=== PATIENT | female | born 1985 | race Caucasian/White ===

== ENCOUNTER 2024-01-14 14:57 | Inpatient (IN) | payer MEDICARE, MEDICAID, SELFPAY ==
--- NOTE | ~2024-01-14 | XR_ITS ---
EXAMINATION: XR ABDOMEN KUB CLINICAL INDICATION: Pre-MRI COMPARISON: None available. TECHNIQUE: AP view of the abdomen. FINDINGS: The bowel gas pattern is normal with no evidence of ileus or obstruction. No unusual soft tissue calcifications are noted. The bones are unremarkable. No radiopaque foreign body seen. XR/XR KUB IMPRESSION: Unremarkable examination.
--- NOTE | ~2024-01-14 | MR_ITS ---
EXAMINATION: MR BRAIN WITHOUT CONTRAST CLINICAL INFORMATION: Seizure. COMPARISON: CT scan of the head 01/14/2024. TECHNIQUE: MRI of the brain was obtained using routine sequences without contrast. FINDINGS: No diffusion abnormalities are identified to suggest an acute or subacute infarct. No mass effect or midline shift is seen. The study redemonstrates prominence of the lateral ventricles bilaterally, particularly the temporal horns, occipital horns and trigones. There are gliotic and encephalomalacic changes in the subcortical and periventricular white matter in the bilateral temporal lobes and right greater than left parieto-occipital regions. The hippocampi appear symmetric in size and signal. No extra-axial fluid collections are seen. The brainstem appears normal. No pathologic magnetic susceptibility artifact is identified on the gradient refocused acquisition. The cerebellar tonsils have normal contour and position, and the craniocervical junction appears normal. Marrow signal and midline structures are normal. The major intracranial flow-voids at the level of the rincon of [place] are preserved. The dural venous sinus flow-voids are maintained. The mastoid air cells are well-aerated. There is minimal mucoperiosteal thickening in the bilateral maxillary and ethmoid sinuses. MR/MR head/brain wo con IMPRESSION: 1. There are no acute bleeds or infarcts. No masses are demonstrated. 2. There are gliotic and encephalomalacic changes in the bilateral temporal lobes and right greater than left parieto-occipital regions. 3. The study redemonstrates prominence of the lateral ventricles bilaterally.
--- NOTE | ~2024-01-14 | XR_ITS ---
EXAMINATION: XR CHEST CLINICAL INFORMATION: Pre-MRI COMPARISON: None available. TECHNIQUE: Frontal view of the chest was obtained. FINDINGS: No significant abnormality is noted involving the heart, lungs, mediastinum, bony thorax or soft tissues. No medical lab director or foreign body seen. XR/XR chest 1V IMPRESSION: Unremarkable examination.
--- NOTE | ~2024-01-14 | CT_ITS ---
EXAMINATION: CT HEAD WITHOUT CONTRAST CLINICAL INFORMATION: Recurrent seizures. COMPARISON: CT head 10/31/2018. TECHNIQUE: Contiguous axial imaging was performed from the skull base to vertex without intravenous administration of contrast. This CT examination was performed using dose optimization techniques as appropriate, variously including the following: *Automated exposure control *Adjustment of mA and/or kV according to patient size (this includes techniques or standardized protocols for targeted exams where dose is matched to indication/reason for exam; i.e. extremities or head) *Use of iterative reconstruction technique DLP: 1000 mGy-cm FINDINGS: Equivocal new focal hypodensity in the inferior right frontal lobe (2:24 and 6:192). Again seen is encephalomalacia involving the bilateral temporal lobes and right greater than left parietal lobes with ex vacuo dilatation of the temporal horns. There is no evidence of acute intracranial hemorrhage. Generalized cerebral volume loss again seen. No evidence for obstructive hydrocephalus. No abnormal mass effect or midline shift. No extra-axial fluid collections. No acute soft tissue or osseous abnormalities. The mastoid air cells and paranasal sinuses are clear. CT/CT head/brain wo IV con IMPRESSION: 1. Equivocal new focal hypodensity in the inferior right frontal lobe, although this might be an artifact related with volume averaging and motion. Consider further evaluation with an MRI of the brain. 2. Redemonstration of encephalomalacia in the bilateral temporal and parietal lobes.
[2024-01-14 15:25] VITALS: BP 160/72; PULSE 97; O2SAT 98
[2024-01-14 15:35] VITALS: BP 136/78; PULSE 94; RESP 19; TEMP 36.6; O2SAT 98; BMI 31.8
[2024-01-14 15:43] LABS: Glucose, Whole Blood 364 mg/dL (60-115)
--- NOTE | 2024-01-14 16:02 | ECG_ITS ---
Test Reason : SEIZURE Blood Pressure : / mmHG Vent. Rate : 108 BPM Atrial Rate : 108 BPM P-R Int : 148 ms QRS Dur : 072 ms QT Int : 318 ms P-R-T Axes : 058 051 030 degrees QTc Int : 426 ms Sinus tachycardia Otherwise normal ECG No previous ECGs available Referred By: Parisa Hurst Electronically Signed By:LENNY BLANCO
--- NOTE | 2024-01-14 16:02 | ED_ITS ---
HPI - General Adult General Chief complaint: Seizure Stated complaint: WIT SZ 2 HOURS AGO WIT BY STAFF,NO FALL PER EMS Time Seen by Provider: 01/14/24 15:50 Source: EMS Mode of arrival: EMS Limitations: language barrier and altered mental status History of Present Illness HPI narrative: 38 yo female with known history of seizures who presents to the ED for evaluation after a witnessed seizure activity at the nursing facility where she currently resides. Per facility report patient has not been taking her seizure medications Vimpad for several days due to pharmacy issue. Today patient had an seizure episode that lasted for about a minute; no falls or head injury as staff at the facility was able to assist. After the seizure patient was slow to respond and became very sleepy. She was transported to the ED for evaluation. At the time of this evaluation patient wakes up to voice; says hello when addressed; does not participate in conversation. Per facility at baseline patient is alert and oriented to self. Related Data Allergies Allergy/AdvReac Type Severity Reaction Status Date / Time cephalexin [From KEFLEX] Allergy Unknown UNKNOWN Verified 01/14/24 15:43 TUBERCULOSIS VACCINE Allergy Unknown UNKNOWN Uncoded 06/02/20 19:29 [facility] Social History Social History Smoked in Last 30 Days: No Use of substances other than those prescribed or required for medical reasons: No Advance Directives: No Advance Directives Information Provided: No Physical Exam ED Vital Signs: Vital Signs - 24 hr 01/14/24 15:35 01/14/24 17:11 01/14/24 19:26 Temperature 97.9 F Pulse Rate 94 120 H 106 H Respiratory Rate 19 18 18 Blood Pressure 136/78 118/61 Pulse Oximetry 98 97 99 Oxygen Delivery Method Room Air Room Air Room Air BMI result Body Mass Index 31.8 Const General: no acute distress and lethargic Nutritional Appearance: obese Orientation/consciousness: oriented to person and lethargic Limitations: altered mental status and language barrier HENMT Head: Yes normal to inspection, Yes normocephalic and Yes atraumatic Ears: external ears normal General nose exam: Normal external nose present Mouth: moist mucous membranes Neck Neck: Yes full ROM and Yes no lymphadenopathy Resp Effort & Inspection: normal respiratory effort Auscultation: clear to auscultation bilaterally GI Other: Abdomen is non tender, non distended Inspection: Yes normal to inspection Auscultation: normal bowel sounds General: Yes no CVA tenderness Back/Spine/Pelvis Back: no CVA tenderness Neuro General: oriented to person Motor exam (neuro): 5/5 motor strength present throughout Extrem Other: No signs of trauma General: Yes normal to inspection and Yes full ROM Medications Administered Discontinued Medications Generic Name Dose Route Start Last Admin Trade Name Vivekq PRN Reason Stop Dose Admin Diphenhydramine HCl 50 mg 01/14/24 17:29 01/14/24 17:25 Diphenhydramine Hcl 50 Mg/Ml Vial IM 01/14/24 17:30 50 mg ONCE ONE Administration Levetiracetam 1,500 mg in 100 mls @ 400 mls/hr 01/14/24 16:48 01/14/24 19:09 Keppra IV 01/14/24 17:02 400 mls/hr ONCE ONE Administration Lorazepam 2 mg 01/14/24 16:41 01/14/24 16:41 Lorazepam 2 Mg/Ml Vial IM 01/14/24 16:42 2 mg ONCE ONE Administration Lorazepam 2 mg 01/14/24 16:56 01/14/24 17:06 Lorazepam 2 Mg/Ml Vial IM 01/14/24 16:57 2 mg STAT STA Administration Olanzapine 10 mg 01/14/24 17:29 01/14/24 17:25 Olanzapine 10 Mg Vial IM 01/14/24 17:30 10 mg STAT STA Administration Medical Decision Making Medical Decision Making [facility] Narrative: 38-year-old female with a past medical history of 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 HPI and physical exam as above. Upon presentation patient has hemodynamically stable, somnolent, wakes up and answers to voice; not in any acute distress. At baseline she is alert and oriented to self per SNF report While in the ED patient experienced another seizure; she was given Ativan 2mg IM Blood work, EKG, Keppra 1500mg load were ordered. Patient was confused and combative after the seizure. She was given additional IM medications for chemical sedation. Ultrasound IV was established. Blood work pending. Anticipate admission Admission/Observation Consideration of admission/observation: Escalation of care including admission/observation considered Lab Data [facility] Lab Attestation statement: I reviewed the patient's lab results. 01/14/24 19:21 01/14/24 19:21 Labs: Lab Results 01/14/24 01/14/24 Range/Units 15:39 19:21 WBC 9.1 (4.8-10.8) X10*3/uL RBC 4.51 (4.20-5.50) X10*6/uL Hgb 13.4 (12.0-16.0) g/dl Hct 39.6 (37.0-47.0) % MCV 87.8 (80.0-98.0) fL MCH 29.7 (27.0-33.0) pg MCHC 33.8 (31.0-35.0) g/dl RDW 13.7 (11.0-16.0) % Plt Count 222 (160-400) X10*3/uL MPV 11.0 (9.4-12.3) fL Immature Gran % (Auto) 0.1 (0.0-0.4) % Neut % (Auto) 67.8 (45-73) % Lymph % (Auto) 22.9 (20-40) % [place] % (Auto) 7.0 (2-11) % Eos % (Auto) 1.8 (0-4) % Baso % (Auto) 0.4 (0-2) % Lymph # (Auto) 2.1 (1.2-4.9) X10*3/uL [place] # (Auto) 0.6 (0.1-1.2) X10*3/uL Eos # (Auto) 0.2 (0.0-0.4) X10*3/uL Baso # (Auto) 0.0 (0.0-0.2) X10*3/uL Abs Immat Gran (auto) 0.01 (0.00-0.03) X10*3/uL Absolute Neuts (auto) 6.1 (2.0-8.3) x10*3/uL Absolute Nucleated RBC 0.000 (0.0-0.012) X10*3/uL Nucleated RBC % (auto) 0.0 (0.0-0.2) /100WBC Sodium 137 (135-145) mmol/L Potassium 4.0 (3.3-5.1) mmol/L Chloride 113 H (96-108) mmol/L Carbon Dioxide 16 L (22-29) mmol/L Anion Gap 12 (12-20) BUN 9 (9-16) mg/dL Creatinine 1.06 (0.5-1.4) mg/dL Estim Creat Clear Calc 76.1 Estimated GFR 58 POC Glucose 364 H* (60-115) mg/dL Random Glucose 373 H* (60-115) mg/dL Calcium 9.2 (8.4-10.2) mg/dL Total Bilirubin 0.4 (0.0-1.0) mg/dL AST 27 (5-31) U/L ALT 21 (0-31) U/L Alkaline Phosphatase 76 (39-117) U/L Total Protein 7.5 (6.5-8.0) g/dL Albumin 3.8 (3.5-5.0) g/dL Independent Interpretation I performed an independent interpretation of an: EKG Interpretation: Sinus tachycardia; no prolonged QT, malignant arrhythmia or obvious signs of STEMI. Independent Historian Clinical information obtained from an independent historian. History obtained from or confirmed by: EMS and Other (SNF staff) External Record Review External record reviewed: Inpatient record and Outpatient record Prescription Management I considered prescription management with: Other (Ativan, Zyprexa, Benadryl) Chronic Conditions Patient?s care impacted by: Diabetes Anoxic brain injury. Bipolar disorder. Seizure disorder. Hypothyroidism Discharge Plan Discharge Clinical Impression: Epileptic seizure Print Language: Greenlandic
--- NOTE | 2024-01-14 16:24 | PC.NURSE ---
Seizure precautions in place. Pt on bedside shelter monitor, NSR. VSS.
--- NOTE | 2024-01-14 16:24 | PC.NURSE ---
Pt coming from [facility] facility by EMS. I called and spoke to Latanya ADAME at [facility] who takes care of pt. Per RN, pt had a seizure at 2:15pm today lasting approx 2 min, full body. Pt was lowered to ground, did not fall or hit her head. Per RN, Pt has been out of her Vimpat for 2 days, has taken all other meds including her Keppra with no issues. RN denies any recent falls or illnesses, possible seizure yesterday as well. Pts baseline is alert and oriented to person, otherwise confused.
[2024-01-14] MEDS: LORazepam 2 MG/ML VIAL IM ×2 (16:41→17:06)
[2024-01-14 17:11] VITALS: BP 118/61; PULSE 120; RESP 18; O2SAT 97
[2024-01-14] MEDS: diphenhydrAMINE HCL 50 MG/ML VIAL IM (17:25)
[2024-01-14] MEDS: OLANZapine 10 MG VIAL IM (17:25)
--- NOTE | 2024-01-14 17:30 | PC.NURSE ---
Unable to administer Keppra due to no IV access, provider aware. Multiple attempts made.
--- NOTE | 2024-01-14 17:47 | PC.NURSE ---
1637: tech alerted RN that while she was doing 12 lead ECG, pt began having seizure like activity. RN entered the room immediately to find pt unresponsive with tonic clonic activity noted, pt also noted to have small amount of blood coming from mouth. Provider alerted immediately and is at bedside. Pt rolled to right side and maintained in safe environment (seizure pads already in place). Oropharynx suctioned as needed. Pt placed on 15 L O2 via NRB per MD request. HR elevated to 140s on traffic monitor specialist. 16:40: pt administered 2mg of ativan IM per NOV. Seizure activity ceased shortly after. 16:45: IV access attempted multiple times in multiple sites by RNs, unsuccessful. Pt very hard draw. 16:47: Pt noted to have increasing agitation, obviously confused and postictal. Pt kicking legs and swinging arms. Pt medicated with additional 2mg ativan IM per NOV with some improvements. 17:20: pt noted to get out of bed and rip off cardiac leads. RNs and techs attempted to calm and redirect pt. RNs able to place pt in bed and medicated with additional meds at 17:25 per NOV. 17:45: pt noted to be sleeping in bed this time, breathing even and unlabored. Will continue to monitor.
--- NOTE | 2024-01-14 18:23 | MHC.EDTECH ---
This pct along with another pct attempted to obtain an EKG ,This would be the 3rd attempt patient is too aggressive and aggitated to obtain an EKG. RN Aware.
[2024-01-14] MEDS: levETIRAcetam in NaCl (iso-os) 1,500 MG/100 ML PIGGYBACK 400 MG IV (19:09)
[2024-01-14 19:26] VITALS: PULSE 106; RESP 18; O2SAT 99
[2024-01-14 19:26] LABS: MANUAL DIFF FLAG NO
--- NOTE | 2024-01-14 19:26 | PC.NURSE ---
This automotive service writer assumed care of this Pt at 1900. IV line placed by provider, ultrasound giuded. Med given per NOV. Blood work collected and sent lab. Pt turning and swatting on verbal/tactile stimuli, attempting to disrobe.
[2024-01-14 19:27] LABS: Basophils Percent Auto 0.4 % (0-2); Eosinophils Absolute Auto 0.2 X10*3/uL (0.0-0.4); Eosinophils Percent Auto 1.8 % (0-4); Hematocrit 39.6 % (37.0-47.0); Hemoglobin 13.4 g/dl (12.0-16.0); Imm Gran Abs Auto 0.01 X10*3/uL (0.00-0.03); Imm Gran Pct Auto 0.1 % (0.0-0.4); Lymphocytes Absolute Auto 2.1 X10*3/uL (1.2-4.9); Lymphocytes Percent Auto 22.9 % (20-40); Mean Corpuscular HGB Conc 33.8 g/dl (31.0-35.0); Mean Corpuscular Hemoglobin 29.7 pg (27.0-33.0); Mean Corpuscular Volume 87.8 fL (80.0-98.0); Monocytes Absolute Auto 0.6 X10*3/uL (0.1-1.2); Neutrophils Absolute Auto 6.1 x10*3/uL (2.0-8.3); Neutrophils Percent Auto 67.8 % (45-73); Platelet Count 222 X10*3/uL (160-400); Red Blood Count 4.51 X10*6/uL (4.20-5.50); Red Cell Distribution Width 13.7 % (11.0-16.0); White Blood Count 9.1 X10*3/uL (4.8-10.8)
[2024-01-14 19:55] LABS: Alanine Aminotransferase 21 U/L (0-31); Albumin Level 3.8 g/dL (3.5-5.0); Alkaline Phosphatase 76 U/L (39-117); Anion Gap 12 (12-20); Aspartate Amino Transferase 27 U/L (5-31); Bilirubin Total 0.4 mg/dL (0.0-1.0); Blood Urea Nitrogen 9 mg/dL (9-16); Calcium 9.2 mg/dL (8.4-10.2); Carbon Dioxide 16 mmol/L (22-29); Chloride 113 mmol/L (96-108); Creatinine Clr Calc Pharmacy 76.1; Estimated Glomerular Filt Rate 58; Glucose Random 373 mg/dL (60-115); Sodium 137 mmol/L (135-145); Total Protein 7.5 g/dL (6.5-8.0)
[2024-01-14 19:58] LABS: HCG Quantitative < 2 mIU/mL
[2024-01-14] MEDS: LORazepam 2 MG/ML VIAL IVPUSH (20:00)
[2024-01-14 20:10] VITALS: BP 140/87; PULSE 128; RESP 26; O2SAT 99
[2024-01-14] MEDS: 0.9 % Sodium Chloride 1,000 ML 999 ML IV (20:10)
--- NOTE | 2024-01-14 20:11 | PC.NURSE ---
Pt found to be having seizure like activity at 1999, Provider Jeff Melendrez made aware, ativan given per NOV.
[2024-01-14 20:35] LABS: TSH reflex Free T4 0.12 uIU/mL (0.32-4.0)
--- NOTE | 2024-01-14 20:59 | PHA.MEDREC ---
Pharmacy Consult ? Medication Reconciliation Pharmacy has completed the medication reconciliation. Patient from [facility] with med list. Cristine Juárez, MirzaD
[2024-01-14 21:07] LABS: Free T4 (Free Thyroxine) 1.15 ng/dL (0.71-1.85)
[2024-01-14 22:49] VITALS: PULSE 110; RESP 14; O2SAT 97
--- NOTE | 2024-01-14 23:48 | PC.NURSE ---
Pt straight cath for urine sample. Pt tolerated well. Urine collected and sent to lab. 1050 cc clear light yellow urine collected.
[2024-01-14 23:53] LABS: Appearance Urine Clear; Color Urine Yellow; Glucose Urine UA 500 mg/dL (Negative); Leukocyte Esterase Urine Negative (Negative); Nitrite Urine Negative (Negative); UMIC TRIGGER UACC YES; Urine Blood Trace (Negative); Urine Ketones Negative (Negative); Urine Protein Negative (Neg-Trace)
[2024-01-14 23:55] LABS: Bacteria Urine None Seen (None Seen); Hyaline Casts Urine 0-2 /LPF (0-2); RBC Urine 0-2 /HPF (0-2); Squamous Epithelial Cell Urine 0-2 /HPF (0-2); WBC Urine 0-5 /HPF (0-5)
[2024-01-15 00:03] LABS: Amphetamine Screen Urine Not Detected (Not Detect); Barbiturates, Urine Not Detected (Not Detect); Benzodiazepines Screen Urine Not Detected (Not Detect); Buprenorphine Scr Not Detected (Not Detect); Cannabinoid Screen Urine Not Detected (Not Detect); Cocaine Screen Urine Not Detected (Not Detect); Fentanyl, urine Not Detected (Not Detect); Methadone Screen, Urine Not Detected (Not Detect); Opiate Screen Urine Not Detected (Not Detect); Oxycodone Screen Urine Not Detected (Not Detect); Phencyclidine Screen Urine Not Detected (Not Detect)
[2024-01-15 02:09] LABS: Glucose, Whole Blood 152 mg/dL (60-115)
[2024-01-15 02:26] VITALS: BP 132/87; PULSE 100; RESP 12; TEMP 36.3; O2SAT 97
--- NOTE | 2024-01-15 03:23 | PM.IMHP ---
History of Present Illness Date of Service: 01/15/24 Chief Complaint: Seizure This is a 38-year-old female with pertinent history of type 1 diabetes mellitus, anoxic brain damage, seizure disorder, hypothyroidism bipolar disorder who [facility]. Unable to obtain history from the patient. History obtained from ER provider and chart review. As per the facility, patient has not been taking her seizure medications Vimpat for several days due to initial with pharmacy. Patient had 3 episode of seizures in the ER. At baseline, patient is alert and sometimes oriented to self. Does not take part in conversation. Unable to assess review of systems. Patient is postictal at the time of my evaluation Review of Systems Review of Systems: Yes Unobtainable due to mental condition and Unobtainable due to mental status PMFSH Social History Smoked in Last 30 Days: No Use of substances other than those prescribed or required for medical reasons: No Advance Directives: No Advance Directives Information Provided: No Meds Allergies Allergy/AdvReac Type Severity Reaction Status Date / Time cephalexin [From KEFLEX] Allergy Unknown UNKNOWN Verified 01/14/24 15:43 TUBERCULOSIS VACCINE Allergy Unknown UNKNOWN Uncoded 06/02/20 19:29 Active Medications: Current Medications Acetaminophen (Acetaminophen 325 Mg Tablet) 650 mg PO Q6H PRN PRN Reason: Pain, Mild (Pain Scale 1-3) Enoxaparin Sodium (Enoxaparin Sodium 40 Mg/0.4 Ml Syringe) 40 mg SUBCUT Q24H SHWETA Glucose (Glucose Gel 15 Gm Gel..Gram.) 15 gm PO Q15M PRN; Protocol PRN Reason: per Hypoglycemia Standing Ord. Dextrose (D10) 250 mls @ 750 mls/hr IV Q15M PRN; Protocol PRN Reason: per Hypoglycemia Standing Ord. Insulin Glargine (Insulin Glargine,Hum.Rec.Anlog 100 Unit/Ml 10 Ml Vial) 15 unit SUBCUT BEDTIME SHWETA Insulin Human Lispro (Insulin Lispro 100 Unit/Ml 3 Ml Vial) 0 unit SUBCUT QIDACHS SHWETA; Protocol Melatonin (Melatonin 3 Mg Tablet) 6 mg PO BEDTIME PRN PRN Reason: Insomnia Ondansetron HCl (Ondansetron Hcl 4 Mg/2 Ml Vial) 4 mg IVPUSH Q8H PRN PRN Reason: Nausea and Vomiting Sodium Chloride (0.9 % Sodium Chloride Flush 3 Ml Syringe) 3 ml IVFLUSH QSHIFT [facility] Home Medications ?Medication ?Instructions ?Recorded ?Confirmed ?Last Taken ?Type acetaminophen 325 mg tablet 650 mg PO Q4H PRN PAIN OR FEVER 01/14/24 01/14/24 Unknown History benztropine 1 mg tablet 1 mg PO BID 01/14/24 01/14/24 Unknown History calcium carbonate 2,000 mg PO Q1H PRN gi upset 01/14/24 01/14/24 Unknown History dextran 70-hypromellose (PF) 0.1 1 drp ophthalmic (eye) Q1H PRN Dry 01/14/24 01/14/24 Unknown History %-0.3 % eye drops in a dropperette Eye(S) (Artificial Tears (PF)) guaifenesin 100 mg/5 mL oral liquid 200 mg PO Q4H PRN Cough 01/14/24 01/14/24 Unknown History insulin aspart U-100 100 unit/mL See Rx Instructions .Route .COMPLEX 01/14/24 01/14/24 Unknown History (3 mL) subcutaneous pen insulin aspart U-100 100 unit/mL See Rx Instructions .Route .COMPLEX 01/14/24 01/14/24 Unknown History subcutaneous solution (Novolog U-100 Insulin aspart) insulin glargine 100 unit/mL (3 6 unit subcut DAILY 01/14/24 01/14/24 Unknown History mL) subcutaneous pen (Basaglar KwikPen U-100 Insulin) insulin glargine 100 unit/mL (3 30 unit subcut BEDTIME 01/14/24 01/14/24 Unknown History mL) subcutaneous pen (Basaglar KwikPen U-100 Insulin) lacosamide 200 mg tablet (Vimpat) 200 mg PO BID 01/14/24 01/14/24 Unknown History lactulose 10 gram/15 mL oral 30 g PO TID 01/14/24 01/14/24 Unknown History solution levetiracetam 750 mg tablet 750 mg PO BID 01/14/24 01/14/24 Unknown History (Keppra) levothyroxine 125 mcg tablet 125 mcg PO DAILY 01/14/24 01/14/24 Unknown History loperamide 2 mg tablet 2 mg PO Q2H PRN Loose Stool 01/14/24 01/14/24 Unknown History multivitamin 1 tab PO DAILY 01/14/24 01/14/24 Unknown History norethindrone acetate 5 mg tablet 5 mg PO DAILY 01/14/24 01/14/24 Unknown History (Aygestin) rifaximin 550 mg tablet 550 mg PO BID 01/14/24 01/14/24 Unknown History risperidone 2 mg tablet 2 mg PO BID 01/14/24 01/14/24 Unknown History sennosides 8.6 mg tablet (senna) 8.6 mg PO DAILY PRN Constipation 01/14/24 01/14/24 Unknown History topiramate 50 mg tablet 50 mg PO BID 01/14/24 01/14/24 Unknown History Physical Exam Vital Signs and Narrative: Vital Signs: Last Vital Signs Temp 97.4 F 01/15/24 02:26 Pulse 100 01/15/24 02:26 Resp 12 01/15/24 02:26 BP 132/87 01/15/24 02:26 Pulse Ox 97 01/15/24 02:26 O2 Del Method Room Air 01/15/24 02:26 BMI result Body Mass Index 31.8 Middle-aged female lying in bed in no distress Neck supple, no JVD Regular rate and rhythm, S1-S2 heard Regular breath sounds bilaterally, no wheezing or crackles appreciated Abdomen soft nontender, no guarding, no rigidity Patient is only eye opening to painful stimulus, and mood assess orientation, does not take part in conversation Psych: Drowsy No pedal edema Results Labs 01/14/24 19:21 01/14/24 19:21 Labs: Laboratory Results - last 24 hr 01/14/24 01/14/24 01/14/24 15:39 19:21 23:45 MCV 87.8 MCH 29.7 MCHC 33.8 RDW 13.7 Plt Count 222 MPV 11.0 Immature Gran % (Auto) 0.1 Neut % (Auto) 67.8 Lymph % (Auto) 22.9 [place] % (Auto) 7.0 Eos % (Auto) 1.8 Baso % (Auto) 0.4 Lymph # (Auto) 2.1 [place] # (Auto) 0.6 Eos # (Auto) 0.2 Baso # (Auto) 0.0 Abs Immat Gran (auto) 0.01 Absolute Neuts (auto) 6.1 Absolute Nucleated RBC 0.000 Nucleated RBC % (auto) 0.0 Anion Gap 12 Estim Creat Clear Calc 76.1 Estimated GFR 58 POC Glucose 364 H* Random Glucose 373 H* Calcium 9.2 Magnesium 2.0 Total Bilirubin 0.4 AST 27 ALT 21 Alkaline Phosphatase 76 Total Protein 7.5 Albumin 3.8 TSH 0.12 L Free T4 1.15 Beta HCG, Quant < 2 Urine Color Yellow Urine Appearance Clear Urine pH 7.0 Ur Specific [place] 1.010 Urine Protein Negative Urine Glucose (UA) 500 H Urine Ketones Negative Urine Blood Trace H Urine Nitrite Negative Ur Leukocyte Esterase Negative Urine RBC 0-2 Urine WBC 0-5 Ur Squamous Epith Cells 0-2 Urine Bacteria None Seen Hyaline Casts 0-2 Urine Opiates Screen Not Detected Ur Buprenorphine Scrn Not Detected Ur Oxycodone Screen Not Detected Urine Methadone Screen Not Detected Urine Fentanyl Screen Not Detected Ur Barbiturates Screen Not Detected Ur Phencyclidine Scrn Not Detected Ur Amphetamines Screen Not Detected U Benzodiazepines Scrn Not Detected Urine Cocaine Screen Not Detected U Marijuana (THC) Screen Not Detected 01/15/24 02:05 MCV MCH MCHC RDW Plt Count MPV Immature Gran % (Auto) Neut % (Auto) Lymph % (Auto) [place] % (Auto) Eos % (Auto) Baso % (Auto) Lymph # (Auto) [place] # (Auto) Eos # (Auto) Baso # (Auto) Abs Immat Gran (auto) Absolute Neuts (auto) Absolute Nucleated RBC Nucleated RBC % (auto) Anion Gap Estim Creat Clear Calc Estimated GFR POC Glucose 152 H Random Glucose Calcium Magnesium Total Bilirubin AST ALT Alkaline Phosphatase Total Protein Albumin TSH Free T4 Beta HCG, Quant Urine Color Urine Appearance Urine pH Ur Specific [place] Urine Protein Urine Glucose (UA) Urine Ketones Urine Blood Urine Nitrite Ur Leukocyte Esterase Urine RBC Urine WBC Ur Squamous Epith Cells Urine Bacteria Hyaline Casts Urine Opiates Screen Ur Buprenorphine Scrn Ur Oxycodone Screen Urine Methadone Screen Urine Fentanyl Screen Ur Barbiturates Screen Ur Phencyclidine Scrn Ur Amphetamines Screen U Benzodiazepines Scrn Urine Cocaine Screen U Marijuana (THC) Screen Imaging Radiologist's Impressions: Impressions Head CT 01/14/24 23:10 IMPRESSION: 1. Equivocal new focal hypodensity in the inferior right frontal lobe, although this might be an artifact related with volume averaging and motion. Consider further evaluation with an MRI of the brain. 2. Redemonstration of encephalomalacia in the bilateral temporal and parietal lobes. Assessment and Plan (1) Epileptic seizure: Status: Acute Plan This is a 38-year-old female with pertinent history of type 1 diabetes mellitus, anoxic brain damage, seizure disorder, hypothyroidism bipolar disorder who was [facility] emergency department [facility] for evaluation of seizures. #. Breakthrough seizure in a patient with seizure disorder: Due to missed doses of Vimpat. Patient loaded with IV Keppra and given IV Ativan in the ER. Continue home antiepileptics. CT head with questionable new focal density in the inferior right lobe, obtaining MRI. Seizure precautions #. Acute encephalopathy: Postictal. NPO until mentation improves #. Type 1 diabetes mellitus: Initiating basal plus insulin regimen #. Hypothyroidism: On Synthroid once able #. Bipolar disorder: Continue home mood stabilizers once able to take p.o. DVT prophylaxis: Lovenox Full Code Quality Stroke Does the patient have a stroke diagnosis?: No VTE Prior VTE?: No VTE Risk Level:: Medical - moderate - high VTE Device Contraindication: Treatment Not Indicated VTE Drug Contraindication: N/A - Med Ordered
[2024-01-15] MEDS: Insulin Glargine,Hum.rec.anlog 100 UNIT/ML 10 ML VIAL 15 UNIT SUBCUT ×2 (03:53→21:22)
[2024-01-15] MEDS: Enoxaparin Sodium 40 MG/0.4 ML SYRINGE SUBCUT (05:05)
--- NOTE | 2024-01-15 05:50 | PC.NURSE ---
Pt appears to be sleeping, equal, non labored respirations. Plan of care on going.
--- NOTE | 2024-01-15 06:04 | PC.NURSE ---
Pt continues to responds to tactile stimuli, Pt aphasic, Dr. Patiño made aware, held PO synthroid.
[2024-01-15 06:27] VITALS: BP 113/83; PULSE 94; RESP 15; O2SAT 98
--- NOTE | 2024-01-15 07:38 | P.EN_ITS ---
Event Note Date of Service: 01/15/24 Event Note: 38-year-old female with pertinent history of type 1 diabetes mellitus, anoxic brain damage, seizure disorder, hypothyroidism bipolar disorder who was brought to the emergency department from detention for evaluation of seizures. #. Breakthrough seizure in a patient with seizure disorder: Noted to have multiple witnessed seizures, patient missed Vimpat times few days Status post IV Keppra and IV Ativan in the ED, patient now awake alert following commands, CT head with questionable new focal density in the inferior right lobe, spoke with Radiology they recommend MRI since they feel repeat CT will show the same abnormality will obtain chest x-ray and KUB prior to MRI #. Acute encephalopathy: Resolved, as per family patient is at baseline #. Type 1 diabetes mellitus: Resume home diet/continue Lantus and insulin sliding scale #. Hypothyroidism: On Synthroid #. Bipolar disorder: Continue home mood stabilizers DVT prophylaxis: Lovenox Full Code Time Spent With Patient Time: Total time managing care of this patient today ____ minutes.
[2024-01-15 07:41] LABS: Glucose, Whole Blood 116 mg/dL (60-115)
[2024-01-15] MEDS: Topiramate 25 MG TABLET 50 MG PO ×2 (08:37→21:35)
[2024-01-15] MEDS: Benztropine Mesylate 1 MG TABLET PO ×2 (08:40→21:35)
[2024-01-15] MEDS: Lacosamide 100 MG TABLET 200 MG PO ×2 (08:40→21:35)
[2024-01-15] MEDS: levETIRAcetam 250 MG TABLET 750 MG PO ×2 (08:40→21:35)
[2024-01-15] MEDS: risperiDONE 2 MG TABLET PO ×2 (08:41→21:35)
[2024-01-15] MEDS: 0.9 % Sodium Chloride Flush 3 ML SYRINGE IVFLUSH ×3 (09:04→23:57)
--- NOTE | 2024-01-15 09:07 | PC.NURSE ---
This RN resumed care of patient at 0700, she has been sleeping, able to get PO medications into her with apple sauce, other muniz she will not stay awake to swallow pill independently. Offers no complaints this morning. Pt to be brought to overflow, report given to RN
[2024-01-15 09:47] VITALS: BP 124/66; PULSE 95; RESP 18; TEMP 36.4; O2SAT 100
[2024-01-15 10:53] LABS: Basophils Absolute Auto 0.1 X10*3/uL (0.0-0.2); Eosinophils Absolute Auto 0.4 X10*3/uL (0.0-0.4); Hematocrit 45.5 % (37.0-47.0); Hemoglobin 14.8 g/dl (12.0-16.0); Imm Gran Abs Auto 0.04 X10*3/uL (0.00-0.03); Imm Gran Pct Auto 0.5 % (0.0-0.4); Lymphocytes Absolute Auto 2.8 X10*3/uL (1.2-4.9); Lymphocytes Percent Auto 31.7 % (20-40); Mean Corpuscular HGB Conc 32.5 g/dl (31.0-35.0); Mean Corpuscular Hemoglobin 30.2 pg (27.0-33.0); Mean Corpuscular Volume 92.9 fL (80.0-98.0); Monocytes Absolute Auto 0.6 X10*3/uL (0.1-1.2); Platelet Count 238 X10*3/uL (160-400); Red Cell Distribution Width 13.8 % (11.0-16.0); White Blood Count 8.7 X10*3/uL (4.8-10.8)
[2024-01-15 11:18] LABS: Anion Gap 12 (12-20); Blood Urea Nitrogen 7 mg/dL (9-16); Carbon Dioxide 17 mmol/L (22-29); Chloride 117 mmol/L (96-108); Creatinine Clr Calc Pharmacy 84.9; Estimated Glomerular Filt Rate > 60; Glucose Random 107 mg/dL (60-115); Potassium 4.1 mmol/L (3.3-5.1); Sodium 142 mmol/L (135-145)
--- NOTE | 2024-01-15 13:08 | MHC.CM.PN ---
Attempted to meet with patient in regards to discharge planning. 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 Spoke with patient's father/guardian, Tra, via telephone at [phone]. Tra verifies patient is a joint terminal attack controller care resident of [facility] and anticipates patient will return via BLS. Copy of guardianship requested from [facility]. IMM explained and left bedside. Continue to monitor for d/c needs.
[2024-01-15 15:40] LABS: Glucose, Whole Blood 93 mg/dL (60-115)
[2024-01-15 17:09] LABS: Glucose, Whole Blood 65 mg/dL (60-115)
[2024-01-15 18:18] LABS: Glucose, Whole Blood 67 mg/dL (60-115)
[2024-01-15 18:27] LABS: Glucose, Whole Blood 101 mg/dL (60-115)
[2024-01-15 20:44] VITALS: BP 118/73; PULSE 103; RESP 18; TEMP 36.2; O2SAT 98
[2024-01-15 20:51] LABS: Glucose, Whole Blood 167 mg/dL (60-115)
[2024-01-15] MEDS: Insulin Lispro 100 UNIT/ML 3 ML VIAL SUBCUT (21:21)
[2024-01-15] MEDS: rifAXIMin 550 MG TABLET PO (21:35)
[2024-01-15] MEDS: Lactulose 20 GM/30 ML SOLUTION 30 GM PO (21:45)
[2024-01-16 03:23] VITALS: BP 119/72; PULSE 98; RESP 14; TEMP 36; O2SAT 95
[2024-01-16] MEDS: Levothyroxine Sodium 125 MCG TABLET PO (06:22)
[2024-01-16] MEDS: Enoxaparin Sodium 40 MG/0.4 ML SYRINGE SUBCUT (06:22)
[2024-01-16 07:41] LABS: Glucose, Whole Blood 112 mg/dL (60-115)
[2024-01-16 08:00] VITALS: BP 110/63; PULSE 87; RESP 18; TEMP 36; O2SAT 99
[2024-01-16] MEDS: Benztropine Mesylate 1 MG TABLET PO (09:37)
[2024-01-16] MEDS: rifAXIMin 550 MG TABLET PO (09:37)
[2024-01-16] MEDS: Topiramate 25 MG TABLET 50 MG PO (09:37)
[2024-01-16] MEDS: levETIRAcetam 250 MG TABLET 750 MG PO (09:37)
[2024-01-16] MEDS: Lacosamide 100 MG TABLET 200 MG PO (09:37)
[2024-01-16] MEDS: risperiDONE 2 MG TABLET PO (09:38)
[2024-01-16] MEDS: Lactulose 20 GM/30 ML SOLUTION 30 GM PO ×2 (09:38→15:13)
[2024-01-16] MEDS: 0.9 % Sodium Chloride Flush 3 ML SYRINGE IVFLUSH ×2 (09:38→15:14)
[2024-01-16 11:51] LABS: Glucose, Whole Blood 528 mg/dL (60-115)
[2024-01-16 11:51] LABS: Glucose, Whole Blood 458 mg/dL (60-115)
[2024-01-16] MEDS: Insulin Lispro 100 UNIT/ML 3 ML VIAL SUBCUT ×2 (12:13→17:31)
--- NOTE | 2024-01-16 13:00 | MHC.CM.PN ---
Addendum entered by Charlotte Lindquist 01/16/24 13:07: CM SPOKE TO PTS LEGAL GUARDIAN/FATHER, JESSIKA SOARES [phone] HE IS AWARE OF, AND IN AGREEMENT WITH, DC PLAN/TIME Original Note: PT CLEARED TO DC TODAY, [facility] HOWEVER CM NEVER RECEIVED A RESPONSE. CM LEFT A VM FOR THE [facility], DORINA SANTORO [phone], STILL NO RETURN CALL CM CALLED THE CHARGE NURSE ON THE [facility], WHERE IT IS A RESIDENT. SHE IS AWARE PT WILL RETURN AT 1630 HOURS TODAY, CLINICAL UPDATES FAXED [phone]
--- NOTE | 2024-01-16 13:35 | P.DS_ITS ---
DS: Providers Provider Date of Service: 01/16/24 Date of admission: 01/15/24 10:07 Primary care physician: Acosta Montelongo DO DS: Diagnosis Discharge Diagnosis (1) Epileptic seizure: Status: Acute DS: Summary Hospital Course Hospital Course: History of presenting illness: Date of Service: 01/15/24 Chief Complaint: Seizure This is a 38-year-old female with pertinent history of type 1 diabetes mellitus, anoxic brain damage, seizure disorder, hypothyroidism bipolar disorder who was brought to the emergency department from halfway for evaluation of seizures. Unable to obtain history from the patient. History obtained from ER provider and chart review. As per the facility, patient has not been taking her seizure medications Vimpat for several days due to initial with pharmacy. Patient had 3 episode of seizures in the ER. At baseline, patient is alert and sometimes oriented to self. Does not take part in conversation. Unable to assess review of systems. Patient is postictal at the time of my evaluation. Hospital course: Breakthrough seizures: 38-year-old female with pertinent history of type 1 diabetes mellitus, anoxic brain damage, seizure disorder, hypothyroidism bipolar disorder was brought to the emergency department from halfway for evaluation of seizures, in emergency room patient was noted to have 3 episodes of seizures, patient was treated with IV Keppra, IV lorazepam and subsequently admitted to medical floor, patient had no further episodes of seizure, she was placed back on all of her home medications including Vimpat, a CT head showed a new focal density in the inferior right lower lobe, therefore MRI brain was obtained that showed no masses or abnormal density, patient is now being discharged home with recommendations to continue all home medications, to take seizure precautions, no driving or operating machinery. Acute encephalopathy: Resolved, was likely due to above. Type 1 diabetes mellitus recommend to continue diabetic diet and home medications. Hypothyroidism: Continue Synthroid. Bipolar disorder: Continue home medications. Time Attestation Discharge Coordination Time (in mins): 36 Quality: Safe Use of Opioids Does Pt have an Active Cancer Diagnosis on the Problem List?: No Quality: Stroke Does the patient have a stroke diagnosis?: No Physical Exam Vital Signs: Vital Signs: Last Vital Signs Temp 96.8 F 01/16/24 08:00 Pulse 87 01/16/24 08:00 Resp 18 01/16/24 08:00 BP 110/63 01/16/24 08:00 Pulse Ox 99 01/16/24 08:00 O2 Del Method Room Air 01/16/24 08:00 BMI result Body Mass Index 31.8 Const: Other: General awake alert in no acute distress. Neck supple, no JVD Regular rate and rhythm, S1-S2 heard Regular breath sounds bilaterally, no wheezing or crackles appreciated Abdomen soft non tender, bowel sounds audible, no guarding, no rigidity No pedal edema Neuro moving all 4 extremities DS: Data Data Completed and Pending Labs on day of discharge: Laboratory Results - last 24 hr 01/15/24 01/15/24 01/15/24 12:15 17:02 18:01 POC Glucose 93 65 67 01/15/24 01/15/24 01/16/24 18:23 20:43 07:28 POC Glucose 101 167 H 112 01/16/24 01/16/24 11:24 11:35 POC Glucose 528 H* 458 H* Discharge Plan Discharge Anticipated Discharge Date/Time: 01/16/24 13:32 Patient Disposition: er [facility] Discharge Diagnosis: Breakthrough seizure Referrals: [facility] [Outside] Acosta Montelongo DO [Primary Care Provider] - 1 Week Discharge Medications: Continued multivitamin Tablet 1 tab PO DAILY sennosides [senna] 8.6 mg Tablet 8.6 mg PO DAILY PRN (Reason: Constipation) acetaminophen 325 mg Tablet 650 mg PO Q4H PRN (Reason: PAIN OR FEVER) loperamide 2 mg Tablet 2 mg PO Q2H MDD 8 MG PRN (Reason: Loose Stool) Rx Instructions: administer after each loose stool until symptoms controlled; do not exceed 8 mg per 24 hrs guaifenesin 100 mg/5 mL Liquid 200 mg PO Q4H PRN (Reason: Cough) risperidone 2 mg Tablet 2 mg PO BID insulin aspart U-100 [Novolog U-100 Insulin aspart] 100 unit/mL Solution See Rx Instructions .ROUTE .COMPLEX Rx Instructions: Inject based on sliding scale TIDAC 0 - 79: 0 UNITS 80 - 125: 5 UNITS 126 - 150: 6 UNITS 151 - 175: 7 UNITS 176 - 200: 8 UNITS 201 - 225: 9 UNITS 226 - 250: 10 UNITS 251 - 275: 11 UNITS 276 - 300: 12 UNITS 301 - 325: 13 UNITS 326+: 14 UNITS levothyroxine 125 mcg Tablet 125 mcg PO DAILY benztropine 1 mg tablet 1 mg PO BID calcium carbonate 500 mg calcium (1,250 mg) Tablet,Chewable 2,000 mg PO Q1H PRN (Reason: gi upset) levetiracetam [Keppra] 750 mg Tablet 750 mg PO BID norethindrone acetate [Aygestin] 5 mg Tablet 5 mg PO DAILY insulin aspart U-100 100 unit/mL (3 mL) insulin pen See Rx Instructions .ROUTE .COMPLEX Rx Instructions: Give based on sliding scale for bedtime snack with >15-30gm CHO 150 - 200: 3 UNITS: 201 - 250: 4 UNITS 251+: 5 units topiramate 50 mg Tablet 50 mg PO BID lactulose 10 gram/15 mL Solution 30 g PO TID insulin glargine [Basaglar KwikPen U-100 Insulin] 100 unit/mL (3 mL) insulin pen 30 unit subcut BEDTIME insulin glargine [Basaglar KwikPen U-100 Insulin] 100 unit/mL (3 mL) Insulin Pen 6 unit SUBCUT DAILY lacosamide [Vimpat] 200 mg Tablet 200 mg PO BID Artificial Tears (PF) 0.1-0.3 % Dropperette 1 drp OPHTHALMIC (EYE) Q1H PRN (Reason: Dry Eye(S)) rifaximin 550 mg Tablet 550 mg PO BID Discharge Orders: Discharge Order (Routine); Ordered 01/16/24 Ordered By: Pee Scott Diet: Diabetic diet Activity on Discharge: As tolerated Stand Alone Forms: Patient Portal Discharge page Print Language: Tunisian Care Plan Goals: Recommend compliance with seizure medication/continue seizure precautions/no driving/no operating machinery Resume all home medications Health Concerns: Diabetes mellitus follow diabetic diet continue home insulin Plan of Treatment: Follow-up with primary care physician Assessment: As above
[2024-01-16 16:00] VITALS: BP 117/77; PULSE 104; RESP 14; TEMP 36.4; O2SAT 96
[2024-01-16 17:04] LABS: Glucose, Whole Blood 387 mg/dL (60-115)
== END 2024-01-16 18:37 | disposition intermediate care facility (04) | DRG 101 ==
LOC: HO.ED 16:58 → HO.EDOVER 01-15 03:24 → HO.S3 01-15 19:22
PROVIDERS: Physician Assistant; Admitting Provider Student in an Organized Health Care Education/Training Program; Emergency Provider Emergency Medicine; PCP Hospitalist; Visit Provider Hospitalist
DX: G40.909 Epilepsy, unspecified, not intractable, without status epilepticus (principal); G93.1 Anoxic brain damage, not elsewhere classified; E03.9 Hypothyroidism, unspecified; F31.9 Bipolar disorder, unspecified; T42.6X6A Underdosing of other antiepileptic and sedative-hypnotic drugs, initial encounter; E10.9 Type 1 diabetes mellitus without complications; Z79.890 Hormone replacement therapy; Z79.899 Other long term (current) drug therapy
CPT/HCPCS: 36415; 70450; 70551; 71045; 74018; 80048; 80053; 80307; 81001; 82947; 83735; 84439; 84443; 84702; 85025; 93005; 99221; 99285; J1200; J1650; J1953; J2060; J2359

== ENCOUNTER → 2024-01-14 16:02 | Outpatient (BNV) | payer MEDICARE, MEDICAID, SELFPAY | PROVIDERS: Admitting Provider Student in an Organized Health Care Education/Training Program; Emergency Provider Emergency Medicine; PCP Hospitalist; Visit Provider Internal Medicine | DX: R00.0 Tachycardia, unspecified (principal) | CPT/HCPCS: 93010 ==

== ENCOUNTER → 2024-01-15 03:20 | Outpatient (BNV) | payer MEDICARE, MEDICAID, SELFPAY | PROVIDERS: Admitting Provider Student in an Organized Health Care Education/Training Program; Emergency Provider Emergency Medicine; PCP Hospitalist; Visit Provider Student in an Organized Health Care Education/Training Program | DX: G40.909 Epilepsy, unspecified, not intractable, without status epilepticus (principal) | CPT/HCPCS: 99222; 99239; 99499 ==

== ENCOUNTER 2024-01-17 11:14 | Emergency (ER) | payer MEDICARE, MEDICAID, SELFPAY ==
--- NOTE | ~2024-01-17 | CT_ITS ---
EXAMINATION: CT head/brain wo IV con, CT cervical spine wo IV con INDICATION INFORMATION: Reason for Exam head trauma COMPARISON: MRI of the brain without contrast 01/15/2024 TECHNIQUE: Separate noncontrast CT examinations of the head and cervical spine were performed. Coronal and sagittal images were created for each examination at the technologist workstation. This CT examination was performed using dose optimization techniques as appropriate, variously including the following: *Automated exposure control *Adjustment of mA and/or kV according to patient size (this includes techniques or standardized protocols for targeted exams where dose is matched to indication/reason for exam; i.e. extremities or head) *Use of iterative reconstruction technique DLP: 2706.23 mGy-cm FINDINGS: Motion degraded examination Head: No acute osseous or soft tissue abnormality. The mastoid air cells and visualized portions of the paranasal sinuses are well aerated. There is no evidence of acute intracranial hemorrhage or territorial infarction. No abnormal mass effect or midline shift is seen. No extra-axial fluid collections are identified. No evidence of acute hydrocephalus. Stable lateral and third ventriculomegaly, likely on the basis of ex vacuo dilatation. Chronic encephalomalacia and gliosis involving the bilateral temporal and parietal lobes. No new parenchymal hypodensity. Cervical spine: There is no evidence of acute cervical spine fracture. Vertebral bodies remain normal in height. Loss of the usual cervical spine lordosis. Multilevel loss of disc space height. No pre- or paravertebral soft tissue abnormality is identified. Visualized portions of the lung apices are unremarkable. The thyroid gland is unremarkable. CT/CT cervical spine wo IV con IMPRESSION: 1. Within limitations of motion artifact, no evidence of acute intracranial abnormality. 2. No cervical spine fracture or traumatic malalignment.
--- NOTE | ~2024-01-17 | CT_ITS ---
EXAMINATION: CT ABDOMEN AND PELVIS WITHOUT CONTRAST CLINICAL INFORMATION: Diarrhea and weakness COMPARISON: CT abdomen pelvis 10/31/2018 TECHNIQUE: Multidetector volumetric imaging was performed from the superior aspect of the liver through the pubic symphysis. Sagittal and coronal reformatted images were obtained on the technologist's workstation. This CT examination was performed using dose optimization techniques as appropriate, variously including the following: *Automated exposure control *Adjustment of mA and/or kV according to patient size (this includes techniques or standardized protocols for targeted exams where dose is matched to indication/reason for exam; i.e. extremities or head) *Use of iterative reconstruction technique DLP: 1056 mGy-cm FINDINGS: LUNG BASES: The visualized lung bases are unremarkable. Some minimal basilar atelectasis is seen. LIVER, GALLBLADDER, AND BILIARY TREE: The liver is normal in size and shape but demonstrates decreased attenuation consistent with steatosis. No focal hepatic lesion or biliary ductal dilatation is present. The gallbladder is unremarkable with no evidence of radiopaque gallstones, gallbladder wall thickening, or obvious pericholecystic inflammatory changes. PANCREAS: Unremarkable. SPLEEN: Unremarkable. ADRENAL GLANDS: Unremarkable. KIDNEYS AND URETERS: The kidneys are normal in size, shape, and attenuation. No hydronephrosis, hydroureter, or calculi seen. No perinephric stranding. BLADDER: Unremarkable. GASTROINTESTINAL TRACT: The small and large bowel are unremarkable. The appendix is most likely seen and the unremarkable. There is certainly no evidence of appendicitis. ABDOMINAL WALL: No significant hernia is appreciated. There is mild diastases of the rectus muscles. LYMPH NODES: No retroperitoneal lymphadenopathy. VASCULAR: Unremarkable. PELVIC VISCERA: The uterus and adnexa are unremarkable. There is an extension from the uterus to the anterior abdominal wall, unchanged from prior. This is patient status post a ? There is no ascites. OSSEOUS STRUCTURES: Unremarkable. CT/CT abdomen pelvis wo IV con IMPRESSION: 1. A cause for the patient's diarrhea and weakness has not been found. 2. Incidental note made of hepatic steatosis and other findings described above. Fleischner guidelines were followed.
--- NOTE | ~2024-01-17 | XR_ITS ---
EXAMINATION: XR CHEST CLINICAL INFORMATION: Weakness. COMPARISON: Chest radiograph 01/15/2024. TECHNIQUE: Frontal view of the chest was obtained. FINDINGS: Stable cardiomediastinal silhouette. Mildly increased bronchovascular markings with no consolidation or pleural effusion. No pneumothorax. No acute osseous findings. XR/XR chest 1V IMPRESSION: Increased bronchovascular markings are indeterminate related with pulmonary edema or small airways disease. No consolidation or pleural effusion.
[2024-01-17 11:32] VITALS: BP 124/74; BP 134/82; PULSE 106; PULSE 97; RESP 18; TEMP 36.4; O2SAT 98; O2SAT 99; BMI 37.8
--- NOTE | 2024-01-17 11:35 | ECG_ITS ---
Test Reason : WEAKNESS Blood Pressure : / mmHG Vent. Rate : 084 BPM Atrial Rate : 084 BPM P-R Int : 146 ms QRS Dur : 068 ms QT Int : 344 ms P-R-T Axes : 063 073 019 degrees QTc Int : 406 ms Normal sinus rhythm Low voltage QRS Borderline ECG When compared with ECG of 14-JAN-2024 18:59, No significant change was found Referred By: Alee Escudero Electronically Signed By:LENNY BLANCO
[2024-01-17 13:03] LABS: Influenza A PCR NEGATIVE (Negative); Influenza B PCR NEGATIVE (Negative); Resp Syncy Virus RNA Qual PCR NEGATIVE (Negative); SARS COV2 PCR INHOUSE NEGATIVE (Negative)
--- NOTE | 2024-01-17 13:25 | ED.NAVMDI ---
HPI - Nausea/Vomiting/Diarrhea General Chief complaint: Weakness Stated complaint: DIARRHEA LETHARGIC Time Seen by Provider: 01/17/24 11:26 Source: patient and old records reviewed Mode of arrival: EMS Limitations: other (poor historian) History of Present Illness HPI Narrative: 38 yo female with PMH of IDDM, anoxic brain damage, seizure disorder, hypothyroidism, bipolar disorder from [facility] just seen and treated her for seizures and admitted likely in setting of not being able to take Vimpat. [facility] back to [facility]. Per staff had frequent falls, BS in 400s, also having diarrhea. She cannot provide any history to me. She does state no when asked if she is in pain. MD elicited complaint: diarrhea and other (weakness, falls) Onset (ago): day(s) (sometime today) Description of diarrhea: watery Associated nausea: No Associated abdominal pain: No Severity: moderate Exacerbating factors: movement, standing and exertion Relieving factors: none Associated symptoms: loss of appetite, malaise and weakness Related Data Home Medications ?Medication ?Instructions ?Recorded ?Confirmed acetaminophen 325 mg tablet 650 mg PO Q4H PRN PAIN OR FEVER 01/14/24 01/14/24 benztropine 1 mg tablet 1 mg PO BID 01/14/24 01/14/24 calcium carbonate 2,000 mg PO Q1H PRN gi upset 01/14/24 01/14/24 dextran 70-hypromellose (PF) 0.1 1 drp ophthalmic (eye) Q1H PRN Dry 01/14/24 01/14/24 %-0.3 % eye drops in a dropperette Eye(S) (Artificial Tears (PF)) guaifenesin 100 mg/5 mL oral liquid 200 mg PO Q4H PRN Cough 01/14/24 01/14/24 insulin aspart U-100 100 unit/mL See Rx Instructions .Route .COMPLEX 01/14/24 01/14/24 (3 mL) subcutaneous pen insulin aspart U-100 100 unit/mL See Rx Instructions .Route .COMPLEX 01/14/24 01/14/24 subcutaneous solution (Novolog U-100 Insulin aspart) insulin glargine 100 unit/mL (3 6 unit subcut DAILY 01/14/24 01/14/24 mL) subcutaneous pen (Basaglar KwikPen U-100 Insulin) insulin glargine 100 unit/mL (3 30 unit subcut BEDTIME 01/14/24 01/14/24 mL) subcutaneous pen (Basaglar KwikPen U-100 Insulin) lacosamide 200 mg tablet (Vimpat) 200 mg PO BID 01/14/24 01/14/24 lactulose 10 gram/15 mL oral 30 g PO TID 01/14/24 01/14/24 solution levetiracetam 750 mg tablet 750 mg PO BID 01/14/24 01/14/24 (Keppra) levothyroxine 125 mcg tablet 125 mcg PO DAILY 01/14/24 01/14/24 loperamide 2 mg tablet 2 mg PO Q2H PRN Loose Stool 01/14/24 01/14/24 multivitamin 1 tab PO DAILY 01/14/24 01/14/24 norethindrone acetate 5 mg tablet 5 mg PO DAILY 01/14/24 01/14/24 (Aygestin) rifaximin 550 mg tablet 550 mg PO BID 01/14/24 01/14/24 risperidone 2 mg tablet 2 mg PO BID 01/14/24 01/14/24 sennosides 8.6 mg tablet (senna) 8.6 mg PO DAILY PRN Constipation 01/14/24 01/14/24 topiramate 50 mg tablet 50 mg PO BID 01/14/24 01/14/24 Allergies Allergy/AdvReac Type Severity Reaction Status Date / Time cephalexin [From KEFLEX] Allergy Unknown UNKNOWN Verified 01/17/24 11:35 TUBERCULOSIS VACCINE Allergy Unknown UNKNOWN Uncoded 01/17/24 11:35 Review of Systems Review of Systems: ROS unable to be obtained due to altered mental status Gastrointestinal: Gastrointestinal: Denies nausea PMFSH Past Medical History Attestation statement: The following information was validated with the patient. Source: old records reviewed Medical History (Updated 01/17/24 @ 15:27 by Alee Escudero DO) Diabetes Bipolar disorder Anoxic brain injury Hypothyroidism Epileptic seizure Social History Social History Household Members: Other Housing: Longterm Do you presently have visiting nurse or other home services: No Patient Tobacco Use Status: Never used Tobacco Advance Directives: No Advance Directives Information Provided: No service: No Physical Exam Vital Signs: Vital Signs: Last Vital Signs Temp 97.5 F 01/17/24 11:32 Pulse 97 01/17/24 11:32 Resp 18 01/17/24 11:32 BP 124/74 01/17/24 11:32 Pulse Ox 99 01/17/24 11:32 O2 Del Method Room Air 01/17/24 11:32 BMI result Body Mass Index 37.8 Appearance: Alert. Oriented X1. Mild acute distress. Eyes: Pupils equal, round and reactive to light. ENT: Pharynx dry MM. Abrasion anterior forehead. Neck: Normal inspection. Neck supple. CVS: Normal heart rate and rhythm. Pulses normal. Respiratory: No respiratory distress. Breath sounds normal. Abdomen: Soft and non-tender. Skin: Skin warm and dry. pale skin color. Normal skin turgor. Extremities: No lower extremity edema. Neuro: Oriented X 1 hard to follow exam. No motor deficit. No sensory deficit. Course Course Course Narrative: tough stick repeat attempts delay in labs 327pm Reevaluation(s) Reevaluation #1: signed out to Dr. Peck pending workup Medical Decision Making Medical Decision Making [facility] Narrative: 38 yo female with PMH of IDDM, anoxic brain damage, seizure disorder, hypothyroidism, bipolar disorder from [facility] here with c/o diarrhea, falls, weakness, denies pain - no seizures reported today there is no mention on the notes that she missed her keppra or vimpat. She has no pain to palpation on exam but she is very unreliable. At this time will need labs, IVF, CT head/cspine given falls, CXR, UA. Will need reassessments. Most of the history from notes. Differential Diagnosis Differential Diagnoses: The differential diagnosis associated with the presentation includes viral syndrome, diarrhea, dehydration Admission/Observation Consideration of admission/observation: Escalation of care including admission/observation considered Lab Data [facility] Lab Attestation statement: I reviewed the patient's lab results. Labs: Lab Results 01/17/24 Range/Units 12:08 Influenza Type A (PCR) NEGATIVE (Negative) Influenza Type B (PCR) NEGATIVE (Negative) RSV RNA Qual (PCR) NEGATIVE (Negative) SARS-CoV-2 RNA (RT-PCR) NEGATIVE (Negative) Independent Interpretation I performed an independent interpretation of an: EKG, Plain X-Ray and CT Scan Interpretation: Rate: 84 Rhythm: NSR Cornelius: normal Normal P waves. Normal AYO. Normal QRS complex. ST T wave : no REYMUNDO, normal qTC: 406 prior studies: no acute ischemia The study has been interpreted contemporaneously by me. . Radiology Impression Discussion of test interpretation with radiology: I have reviewed the radiologist's reading. Independent Historian Clinical information obtained from an independent historian. History obtained from or confirmed by: EMS External Record Review External record reviewed: Inpatient record Discharge Plan Discharge Clinical Impression: Diarrhea Qualifiers: Diarrhea type: unspecified type Qualified Code(s): R19.7 - Diarrhea, unspecified Falls Qualifiers: Encounter type: initial encounter Qualified Code(s): W19.XXXA - Unspecified fall, initial encounter Patient Disposition: Still a Patient Prescriptions: No Action multivitamin Tablet 1 tab PO DAILY sennosides [senna] 8.6 mg Tablet 8.6 mg PO DAILY PRN (Reason: Constipation) acetaminophen 325 mg Tablet 650 mg PO Q4H PRN (Reason: PAIN OR FEVER) loperamide 2 mg Tablet 2 mg PO Q2H MDD 8 MG PRN (Reason: Loose Stool) Rx Instructions: administer after each loose stool until symptoms controlled; do not exceed 8 mg per 24 hrs guaifenesin 100 mg/5 mL Liquid 200 mg PO Q4H PRN (Reason: Cough) risperidone 2 mg Tablet 2 mg PO BID insulin aspart U-100 [Novolog U-100 Insulin aspart] 100 unit/mL Solution See Rx Instructions .ROUTE .COMPLEX Rx Instructions: Inject based on sliding scale TIDAC 0 - 79: 0 UNITS 80 - 125: 5 UNITS 126 - 150: 6 UNITS 151 - 175: 7 UNITS 176 - 200: 8 UNITS 201 - 225: 9 UNITS 226 - 250: 10 UNITS 251 - 275: 11 UNITS 276 - 300: 12 UNITS 301 - 325: 13 UNITS 326+: 14 UNITS levothyroxine 125 mcg Tablet 125 mcg PO DAILY benztropine 1 mg tablet 1 mg PO BID calcium carbonate 500 mg calcium (1,250 mg) Tablet,Chewable 2,000 mg PO Q1H PRN (Reason: gi upset) levetiracetam [Keppra] 750 mg Tablet 750 mg PO BID norethindrone acetate [Aygestin] 5 mg Tablet 5 mg PO DAILY insulin aspart U-100 100 unit/mL (3 mL) insulin pen See Rx Instructions .ROUTE .COMPLEX Rx Instructions: Give based on sliding scale for bedtime snack with >15-30gm CHO 150 - 200: 3 UNITS: 201 - 250: 4 UNITS 251+: 5 units topiramate 50 mg Tablet 50 mg PO BID lactulose 10 gram/15 mL Solution 30 g PO TID insulin glargine [Basaglar KwikPen U-100 Insulin] 100 unit/mL (3 mL) insulin pen 30 unit subcut BEDTIME insulin glargine [Basaglar KwikPen U-100 Insulin] 100 unit/mL (3 mL) Insulin Pen 6 unit SUBCUT DAILY lacosamide [Vimpat] 200 mg Tablet 200 mg PO BID Artificial Tears (PF) 0.1-0.3 % Dropperette 1 drp OPHTHALMIC (EYE) Q1H PRN (Reason: Dry Eye(S)) rifaximin 550 mg Tablet 550 mg PO BID Print Language: Greenlandic
--- NOTE | 2024-01-17 14:19 | MHC.EDTECH ---
Patient is very hard to olga her blood , 3 ED techs tried and one from phlebotomy can t get it. RN AWARE (Marisa)
[2024-01-17 16:00] VITALS: BP 107/51; PULSE 94; RESP 14; TEMP 36.9; O2SAT 98
[2024-01-17 16:20] VITALS: BP 97/62; PULSE 92; RESP 20; O2SAT 97
[2024-01-17 16:50] LABS: MANUAL DIFF FLAG NO
[2024-01-17 16:53] LABS: Basophils Percent Auto 0.5 % (0-2); Eosinophils Absolute Auto 0.3 X10*3/uL (0.0-0.4); Hematocrit 39.1 % (37.0-47.0); Hemoglobin 13.2 g/dl (12.0-16.0); Imm Gran Abs Auto 0.02 X10*3/uL (0.00-0.03); Imm Gran Pct Auto 0.2 % (0.0-0.4); Lymphocytes Absolute Auto 2.2 X10*3/uL (1.2-4.9); Lymphocytes Percent Auto 27.2 % (20-40); Mean Corpuscular HGB Conc 33.8 g/dl (31.0-35.0); Mean Corpuscular Hemoglobin 30.2 pg (27.0-33.0); Mean Corpuscular Volume 89.5 fL (80.0-98.0); Mean Platelet Volume 11.2 fL (9.4-12.3); Monocytes Absolute Auto 0.6 X10*3/uL (0.1-1.2); Monocytes Percent Auto 7.5 % (2-11); Neutrophils Absolute Auto 4.9 x10*3/uL (2.0-8.3); Neutrophils Percent Auto 60.6 % (45-73); Platelet Count 231 X10*3/uL (160-400); Red Blood Count 4.37 X10*6/uL (4.20-5.50); Red Cell Distribution Width 13.3 % (11.0-16.0); White Blood Count 8.2 X10*3/uL (4.8-10.8)
[2024-01-17 16:55] LABS: Venous Blood Gas Refer to POC result
[2024-01-17 16:55] LABS: VBG Base Excess -6.1 mmol/L; VBG HCO3 18 mmol/L (22-26); VBG pCO2 33 mmHg; VBG pH 7.34 (7.32-7.43); VBG pO2 54 mmHg
[2024-01-17] MEDS: 0.9 % Sodium Chloride 1,000 ML 999 ML IV (16:55)
--- NOTE | 2024-01-17 17:05 | PC.NURSE ---
late entry: multiple attempted made to obtain IV access and pts blood. 2 providers attempted with U/S guidance without success. ICU contacted at 1500 and Ozzy Rn came to ED at that time to attempt. Ozzy RN placed U/S guided 20G in pts R upper arm.
[2024-01-17 17:29] LABS: HCG Quantitative < 2 mIU/mL; TSH reflex Free T4 0.34 uIU/mL (0.32-4.0)
[2024-01-17 17:34] LABS: Ammonia 31 umol/L (13-55)
[2024-01-17 18:41] LABS: Glucose, Whole Blood 400 mg/dL (60-115)
[2024-01-17 18:43] LABS: Troponin-I High Sensitivity < 2.7 ng/L (<3.5-17.0)
[2024-01-17 18:46] LABS: Alanine Aminotransferase 26 U/L (0-31); Albumin Level 3.7 g/dL (3.5-5.0); Alkaline Phosphatase 81 U/L (39-117); Anion Gap 12 (12-20); Aspartate Amino Transferase 16 U/L (5-31); Bilirubin Direct 0.2 mg/dL (0.0-0.5); Bilirubin Total 0.3 mg/dL (0.0-1.0); Blood Urea Nitrogen 15 mg/dL (9-16); Calcium 9.4 mg/dL (8.4-10.2); Carbon Dioxide 18 mmol/L (22-29); Chloride 111 mmol/L (96-108); Creatinine Clr Calc Pharmacy 72.5; Estimated Glomerular Filt Rate 50; Glucose Random 488 mg/dL (60-115); Lipase 43 U/L (8-78); Magnesium 1.9 mg/dL (1.6-2.6); Potassium 4.3 mmol/L (3.3-5.1); Sodium 137 mmol/L (135-145); Total Protein 6.9 g/dL (6.5-8.0)
[2024-01-17] MEDS: Insulin Regular, Human 100 UNIT/ML 3 ML VIAL 10 UNIT IVPUSH (19:01)
[2024-01-17] MEDS: Lacosamide 100 MG TABLET 200 MG PO (19:02)
[2024-01-17] MEDS: levETIRAcetam 250 MG TABLET 750 MG PO (19:02)
[2024-01-17 19:07] VITALS: BP 148/80; PULSE 81; RESP 17; TEMP 36.4; O2SAT 96
[2024-01-17 19:56] LABS: Glucose, Whole Blood 262 mg/dL (60-115)
[2024-01-17 20:30] VITALS: BP 140/48; PULSE 100; RESP 16; TEMP 36.4; O2SAT 98
--- NOTE | 2024-01-17 20:54 | PHA.MEDREC ---
Pharmacy Consult ? Medication Reconciliation Pharmacy has completed the medication reconciliation. Patient from [facility] with med list. Cristine Juárez, MirzaD
--- NOTE | 2024-01-17 22:15 | PC.NURSE ---
NURSE TO NURSE REPORT GIVE NTO [facility]
[2024-01-17 22:16] VITALS: BP 140/48; PULSE 99; RESP 18; TEMP 36.1; O2SAT 99
== END 2024-01-17 22:49 | disposition home or self-care (01) ==
PROVIDERS: Emergency Medicine; Emergency Provider Emergency Medicine Emergency Medical Services; PCP Hospitalist
DX: R19.7 Diarrhea, unspecified (principal); E11.65 Type 2 diabetes mellitus with hyperglycemia; G40.909 Epilepsy, unspecified, not intractable, without status epilepticus; G93.1 Anoxic brain damage, not elsewhere classified; Z79.4 Long term (current) use of insulin; Z91.81 History of falling; Z03.818 Encounter for observation for suspected exposure to other biological agents ruled out
CPT/HCPCS: 0241U; 36415; 70450; 71045; 72125; 74176; 80048; 80076; 82140; 82550; 82803; 82947; 83605; 83690; 83735; 84443; 84484; 84702; 85025; 87040; 93005; 96361; 96374; 99285

== ENCOUNTER → 2024-01-17 11:35 | Outpatient (BNV) | payer MEDICARE, MEDICAID, SELFPAY | PROVIDERS: Emergency Provider Emergency Medicine Emergency Medical Services; PCP Hospitalist; Visit Provider Internal Medicine | DX: R53.1 Weakness (principal) | CPT/HCPCS: 93010 ==

== ENCOUNTER 2024-08-19 06:09 | Emergency (ER) | payer MEDICARE, MEDICAID, SELFPAY ==
--- NOTE | ~2024-08-19 | CT_ITS ---
EXAMINATION: CT HEAD WITHOUT CONTRAST CLINICAL INFORMATION: head trauma ams COMPARISON: CT dated January 17, 2024. TECHNIQUE: Contiguous axial imaging was performed from the skull base to vertex without intravenous administration of contrast. This CT examination was performed using dose optimization techniques as appropriate, variously including the following: *Automated exposure control *Adjustment of mA and/or kV according to patient size (this includes techniques or standardized protocols for targeted exams where dose is matched to indication/reason for exam; i.e. extremities or head) *Use of iterative reconstruction technique DLP: 782.11 mGy-cm FINDINGS: Limited by patient's motion artifact. Soft tissue contusion/hematoma, superior right frontal soft tissue scalp/forehead. Bony calvarium is intact. Skull base is intact. No hematoma, intraconal or extraconal compartments of the orbits. No acute intracranial hemorrhage, mass effect, midline shift, hydrocephalus or herniation. Cintron-white matter differentiation is normal. Encephalomalacia is involving the temporal lobes bilaterally and to a lesser extent right parietal lobe. Prominence of the extra-axial CSF spaces cerebral sulci and ventricles. Posterior cranial fossa contents demonstrated no acute intracranial hemorrhage. Vascular calcifications in the ICAs. Polypoid mucosal thickening, maxillary sinuses. No air-fluid levels in the included paranasal sinuses. Tympanic cavities and mastoid air cells are aerated. CT/CT head/brain wo IV con IMPRESSION: Soft tissue contusion, right frontal soft tissue scalp. No acute fracture, bony calvarium. No acute intracranial hemorrhage. Encephalomalacia, temporal lobes and right parietal lobe likely previous vascular insult. Electronically signed by: Carson Guerin MD 08/19/2024 12:57 PM [facility]
--- NOTE | ~2024-08-19 | CT_ITS ---
EXAMINATION: CT CERVICAL SPINE WITHOUT CONTRAST CLINICAL INFORMATION: Injury. Change in mental status. COMPARISON: CT dated February 13, 2024 TECHNIQUE: Contiguous axial images through the cervical spine using 3 mm collimation with bone and soft tissue algorithm. Sagittal and coronal reformatted images acquired. This CT examination was performed using dose optimization techniques as appropriate, variously including the following: *Automated exposure control *Adjustment of mA and/or kV according to patient size (this includes techniques or standardized protocols for targeted exams where dose is matched to indication/reason for exam; i.e. extremities or head) *Use of iterative reconstruction technique DLP: 583.26 mGy-cm FINDINGS: Craniocervical junction is intact. C1 is intact. C2 is intact. C3 is intact. C4 is intact. C5 is intact. C6 is intact. C7 is intact. No gross malalignment. Marginal osteophyte formation and endplate sclerosis at C6-7. No prevertebral compartment hematoma. Tympanic cavities and mastoid cells are aerated. Pulmonary mosaic pattern. CT/CT cervical spine wo IV con IMPRESSION: No acute fracture or trauma-related listhesis. Spondylosis, C6-7. Consider mild interstitial lung edema versus small pulmonary artery disease and or small airway disease. Fleischner guidelines were followed. Electronically signed by: Carson Guerin MD 08/19/2024 01:02 PM [facility]
--- NOTE | ~2024-08-19 | XR_ITS ---
EXAMINATION: XR CHEST CLINICAL INFORMATION: seizure COMPARISON: X-ray dated January 17, 2024 TECHNIQUE: Frontal view of the chest was obtained. FINDINGS: Indistinct margins in the perihilar regions. Low lung volume. No gross consolidation. No pneumothorax. Cardiomediastinal silhouette is normal in size. Degenerative changes in the right shoulder. Multilevel thoracic spondylosis. XR/XR chest 1V IMPRESSION: Interstitial edema in the correct clinical settings. Electronically signed by: Carson Guerin MD 08/19/2024 12:48 PM [facility]
[2024-08-19 06:13] VITALS: BP 138/92; PULSE 98; O2SAT 97
[2024-08-19 06:17] VITALS: BP 116/76; PULSE 97; RESP 18; TEMP 36.4; O2SAT 97; BMI 35.4
[2024-08-19] MEDS: LORazepam 2 MG/ML VIAL IM (07:02)
--- NOTE | 2024-08-19 07:04 | ED.FALL ---
HPI - Fall General Chief Complaint: Fall Stated Complaint: FALL WITH HEAD STRIKE Time Seen by Provider: 08/19/24 06:32 Source: patient, EMS, RN notes reviewed and old records reviewed Mode of arrival: EMS History of Present Illness ED Provider: Jennifer Romo PA-C HPI Narrative: 39-year-old female with a medical history of diabetes, anoxic brain injury, seizure disorder, hypothyroid, bipolar, presenting to the ED via EMS from [facility] s/p mechanical slip and fall at facility 25 minutes [employer]. Per staff patient fell into a closet door with noted hematoma to right forehead. No LOC. Unknown anticoagulation. C-collar placed by EMS. At baseline patient alert and sometimes oriented to self. Does not per taking conversation. History limited due to patient's baseline mental status. Related Data Home Medications ?Medication ?Instructions ?Recorded ?Confirmed acetaminophen 325 mg tablet 650 mg PO Q4H PRN PAIN OR FEVER 01/14/24 08/19/24 benztropine 1 mg tablet 1 mg PO BID 01/14/24 08/19/24 calcium carbonate 2,000 mg PO Q1H PRN gi upset 01/14/24 08/19/24 dextran 70-hypromellose (PF) 0.1 2 drp ophthalmic (eye) Q1H PRN Dry 01/14/24 08/19/24 %-0.3 % eye drops in a dropperette Eye(S) (Artificial Tears (PF)) guaifenesin 100 mg/5 mL oral liquid 200 mg PO Q4H PRN Cough 01/14/24 08/19/24 insulin aspart U-100 100 unit/mL See Protocol subcut BEDTIME 01/14/24 08/19/24 (3 mL) subcutaneous pen insulin aspart U-100 100 unit/mL See Protocol subcut TIDAC 01/14/24 08/19/24 subcutaneous solution (Novolog U-100 Insulin aspart) insulin glargine 100 unit/mL (3 6 unit subcut DAILY 01/14/24 08/19/24 mL) subcutaneous pen (Basaglar KwikPen U-100 Insulin) insulin glargine 100 unit/mL (3 30 unit subcut BEDTIME 01/14/24 08/19/24 mL) subcutaneous pen (Basaglar KwikPen U-100 Insulin) lacosamide 200 mg tablet (Vimpat) 200 mg PO BID 01/14/24 08/19/24 lactulose 10 gram/15 mL oral 30 g PO TID 01/14/24 08/19/24 solution levetiracetam 750 mg tablet 1,500 mg PO BID 01/14/24 08/19/24 (Keppra) loperamide 2 mg tablet 2 mg PO Q2H PRN Loose Stool 01/14/24 08/19/24 multivitamin 1 tab PO DAILY 01/14/24 08/19/24 rifaximin 550 mg tablet 550 mg PO BID 01/14/24 08/19/24 risperidone 2 mg tablet 2 mg PO BID 01/14/24 08/19/24 sennosides 8.6 mg tablet (senna) 8.6 mg PO DAILY PRN Constipation 01/14/24 08/19/24 topiramate 50 mg tablet 50 mg PO BID 01/14/24 08/19/24 bisacodyl 10 mg rectal suppository 10 mg NE DAILY PRN Constipation 08/19/24 08/19/24 levothyroxine 100 mcg tablet 100 mcg PO DAILY@0600 08/19/24 08/19/24 norethindrone acetate 5 mg tablet 5 mg PO DAILY 08/19/24 08/19/24 sodium phosphates 19 gram-7 118 ml NE DAILY PRN Constipation 08/19/24 08/19/24 gram/118 mL enema (Fleet Enema) Allergies Allergy/AdvReac Type Severity Reaction Status Date / Time cephalexin [From KEFLEX] Allergy Unknown UNKNOWN Verified 08/19/24 06:18 TUBERCULOSIS VACCINE Allergy Unknown UNKNOWN Uncoded 01/17/24 11:35 Review of Systems Review of Systems: Yes all other systems are reviewed and are negative Constitutional: Constitutional: Reports as per [facility] Past Medical History Attestation statement: The following information was validated with the patient. Source: old records reviewed Medical History Diabetes Bipolar disorder Anoxic brain injury Hypothyroidism Epileptic seizure Social History Social History Household Members: Other Housing: Halfway Do you presently have visiting nurse or other home services: No Unable to assess alcohol history related to: Unable to respond Patient Tobacco Use Status: Never used Tobacco Advance Directives: No Do you have a plan to hurt others: No Plan service: No Physical Exam Vital Signs: Vital Signs: Last Vital Signs Temp 97.8 F 08/19/24 11:00 Pulse 96 08/19/24 14:00 Resp 16 08/19/24 14:00 BP 125/86 08/19/24 14:00 Pulse Ox 98 08/19/24 14:00 O2 Del Method Room Air 08/19/24 14:00 BMI result Body Mass Index 35.4 Const: General: cooperative, healthy appearing and no acute distress Limitations: no limitations HEENT: Other: Large hematoma noted to right forehead Head: Yes hematoma and Yes scalp tenderness Ears: hearing grossly normal bilaterally General nose exam: Normal external nose present Face and sinus: Yes normal facial exam Throat: Yes posterior oropharynx normal, Yes uvula midline, No peritonsillar mass, No uvula laterally displaced and No uvular edema Eyes: General: appearance normal, both eyes and all related structures Pupils: Equal, round and reactive pupils present EOM: EOMs intact bilaterally Neck: Other: C-collar in place Neck: Yes normal visual inspection and Yes no meningeal signs Resp: Effort & Inspection: normal respiratory effort and no respiratory distress Auscultation: clear to auscultation bilaterally Cardio: Rate: regular rate Heart sounds: S1 normal heart sound present and S2 normal heart sound present GI: Inspection: Yes normal to inspection Palpation (GI): Soft to palpation, nontender, no guarding and not rigid Skin: Rashes: no rashes Wounds: no wounds Neuro: General: tone normal, moves all extremities and no meningeal signs Cranial nerves: Yes CN's II-XII intact bilaterally and Yes Equal, round and reactive pupils present Extrem: General: Yes normal to inspection Course Course Course Narrative: 0627-- patient with witnessed tonic-clonic seizure in the ED. + lip/tongue biting. 2mg IM Ativan and 1g loading Keppra given >> suspect breakthrough seizure vs ICH -1323-- leukocytosis of 12.9. Labs otherwise reassuring XR chest 1V IMPRESSION: Interstitial edema in the correct clinical settings. CT head/brain wo IV con IMPRESSION: Soft tissue contusion, right frontal soft tissue scalp. No acute fracture, bony calvarium. No acute intracranial hemorrhage. Encephalomalacia, temporal lobes and right parietal lobe likely previous vascular insult. CT cervical spine wo IV con IMPRESSION: No acute fracture or trauma-related listhesis. Spondylosis, C6-7. Consider mild interstitial lung edema versus small pulmonary artery disease and or small airway disease. Fleischner guidelines were followed. > patient has been ambulating around the ED, appears at baseline mental status. Safe for discharge back to facility [facility] at this time Medications Administered Discontinued Medications Generic Name Dose Route Start Last Admin Trade Name Freq PRN Reason Stop Dose Admin Acetaminophen 650 mg 08/19/24 08:35 08/19/24 10:59 Acetaminophen 325 Mg Tablet PO 08/19/24 08:36 Not Given ONCE ONE Levetiracetam 1,000 mg in 100 mls @ 400 mls/hr 08/19/24 07:00 08/19/24 07:35 Keppra IV 08/19/24 07:14 Infused ONCE ONE Infusion Lorazepam 2 mg 08/19/24 06:59 08/19/24 07:02 Lorazepam 2 Mg/Ml Vial IM 08/19/24 07:00 2 mg ONCE ONE Administration Lorazepam 1 mg 08/19/24 11:17 08/19/24 11:23 Lorazepam 2 Mg/Ml Vial IVPUSH 08/19/24 11:18 1 mg ONCE ONE Administration Medical Decision Making Medical Decision Making [facility] Narrative: 39-year-old female with a medical history of diabetes, anoxic brain injury, seizure disorder, hypothyroid, bipolar, presenting to the ED via EMS from [facility] s/p mechanical slip and fall at facility 25 minutes [place] [place]. on exam vital signs stable, NAD, A&Ox0, large hematoma noted to right forehead. Patient unable to supply history at time /baseline mental status. Concern or ICH vs fracture. Rule out metabolic abnormalities plan: Head/C-spine CT, labs, UA Please refer to course for remaining clinical decision making, interpretation of labs/imaging results, and discussions with consultants and/or family members. Differential Diagnosis Differential Diagnoses: The differential diagnosis associated with the presentation includes As above Admission/Observation Consideration of admission/observation: Escalation of care including admission/observation considered Lab Data [facility] Lab Attestation statement: I reviewed the patient's lab results. 08/19/24 09:34 08/19/24 09:34 Labs: Lab Results 08/19/24 Range/Units 09:34 WBC 12.9 H (4.8-10.8) X10*3/uL RBC 5.07 (4.20-5.50) X10*6/uL Hgb 15.1 (12.0-16.0) g/dl Hct 45.8 (37.0-47.0) % MCV 90.3 (80.0-98.0) fL MCH 29.8 (27.0-33.0) pg MCHC 33.0 (31.0-35.0) g/dl RDW 14.2 (11.0-16.0) % Plt Count 132 L D (160-400) X10*3/uL MPV Not Reportable Immature Gran % (Auto) 1.2 H (0.0-0.4) % Neut % (Auto) 79.2 H (45-73) % Lymph % (Auto) 14.3 L (20-40) % [place] % (Auto) 4.1 (2-11) % Eos % (Auto) 0.5 (0-4) % Baso % (Auto) 0.7 (0-2) % Lymph # (Auto) 1.8 (1.2-4.9) X10*3/uL [place] # (Auto) 0.5 (0.1-1.2) X10*3/uL Eos # (Auto) 0.1 (0.0-0.4) X10*3/uL Baso # (Auto) 0.1 (0.0-0.2) X10*3/uL Abs Immat Gran (auto) 0.15 H (0.00-0.03) X10*3/uL Absolute Neuts (auto) 10.2 H (2.0-8.3) x10*3/uL Absolute Nucleated RBC 0.000 (0.0-0.012) X10*3/uL Nucleated RBC % (auto) 0.0 (0.0-0.2) /100WBC Smear Tech's Comments VERIFIED Sodium 141 (135-145) mmol/L Potassium 4.0 (3.3-5.1) mmol/L Chloride 114 H (96-108) mmol/L Carbon Dioxide 16 L (22-29) mmol/L Anion Gap 15 (12-20) BUN 8 L (9-16) mg/dL Creatinine 0.82 (0.5-1.4) mg/dL Estim Creat Clear Calc 106.8 Estimated GFR > 60 Random Glucose 142 H (60-115) mg/dL Calcium 9.1 (8.4-10.2) mg/dL Magnesium 2.1 (1.6-2.6) mg/dL Total Bilirubin 0.3 (0.0-1.0) mg/dL Direct Bilirubin 0.1 (0.0-0.5) mg/dL AST 22 (5-31) U/L ALT 18 (0-31) U/L Alkaline Phosphatase 84 (39-117) U/L Total Protein 7.2 (6.5-8.0) g/dL Albumin 3.6 (3.5-5.0) g/dL Beta HCG, Quant < 2 mIU/mL Independent Interpretation I performed an independent interpretation of an: CT Scan Radiology Impression Discussion of test interpretation with radiology: I have reviewed the radiologist's reading. Independent Historian Clinical information obtained from an independent historian. History obtained from or confirmed by: EMS External Record Review External record reviewed: Inpatient record, Office record, Outpatient record, Prior outpatient labs, Prior outpatient radiology, Primary care record and Outside ED record Tests considered The following testing was considered but not selected: As above Chronic Conditions Patient?s care impacted by: Other Social Determinants Patient?s care significantly limited by Social Determinants of Health including: Inadequate housing, Problems related to primary support group, Unemployment and Other Social Determinant of Health Discharge Plan Discharge Clinical Impression: Scalp hematoma, Breakthrough seizure Patient Disposition: Xfer SNF Transfer Details: [facility] Instructions: Epilepsy (DC), Scalp Contusion in Adults (ED) Additional Instructions: blood work and imaging studies are reassuring. CT scan of the head shows a soft tissue contusion/ hematoma of the scalp Ice this area. Give Tylenol for pain Continue home prescribed medications including seizure medications. Patient did have a witnessed seizure in the emergency department If has recurrent or persistent seizures, fever, change in mental Prescriptions: No Action multivitamin Tablet 1 tab PO DAILY sennosides [senna] 8.6 mg Tablet 8.6 mg PO DAILY PRN (Reason: Constipation) acetaminophen 325 mg Tablet 650 mg PO Q4H PRN (Reason: PAIN OR FEVER) loperamide 2 mg Tablet 2 mg PO Q2H MDD 8 MG PRN (Reason: Loose Stool) Rx Instructions: administer after each loose stool until symptoms controlled; do not exceed 8 mg per 24 hrs guaifenesin 100 mg/5 mL Liquid 200 mg PO Q4H PRN (Reason: Cough) risperidone 2 mg Tablet 2 mg PO BID insulin aspart U-100 [Novolog U-100 Insulin aspart] 100 unit/mL Solution See Protocol subcut TIDAC Protocol: Insulin Correction Scale Less than or equal to 110 ---- Give (units): 0 111 to 150 Give (units): 0 151 to 200 Give (units): 2 201 to 250 Give (units): 4 251 to 300 Give (units): 6 301 to 350 Give (units): 8 Greater than 350 Give (units): 10 Call MD if Blood Glucose > : 350 Rx Instructions: Inject based on sliding scale [facility] 0 - 79: 0 UNITS 80 - 125: 5 UNITS 126 - 150: 6 UNITS 151 - 175: 7 UNITS 176 - 200: 8 UNITS 201 - 225: 9 UNITS 226 - 250: 10 UNITS 251 - 275: 11 UNITS 276 - 300: 12 UNITS 301 - 325: 13 UNITS 326+: 14 UNITS benztropine 1 mg tablet 1 mg PO BID calcium carbonate 500 mg calcium (1,250 mg) Tablet,Chewable 2,000 mg PO Q1H PRN (Reason: gi upset) levetiracetam [Keppra] 750 mg Tablet 1,500 mg PO BID insulin aspart U-100 100 unit/mL (3 mL) insulin pen See Protocol subcut BEDTIME Protocol: Insulin Correction Scale Less than or equal to 110 ---- Give (units): 0 111 to 150 Give (units): 0 151 to 200 Give (units): 3 201 to 250 Give (units): 4 251 to 300 Give (units): 5 301 to 350 Give (units): 5 Greater than 350 Give (units): 5 Call MD if Blood Glucose > : 350 Rx Instructions: Give based on sliding scale for bedtime snack with >15-30gm CHO 150 - 200: 3 UNITS: 201 - 250: 4 UNITS 251+: 5 units topiramate 50 mg Tablet 50 mg PO BID lactulose 10 gram/15 mL Solution 30 g PO TID insulin glargine [Basaglar KwikPen U-100 Insulin] 100 unit/mL (3 mL) insulin pen 30 unit subcut BEDTIME insulin glargine [Basaglar KwikPen U-100 Insulin] 100 unit/mL (3 mL) Insulin Pen 6 unit SUBCUT DAILY lacosamide [Vimpat] 200 mg Tablet 200 mg PO BID Artificial Tears (PF) 0.1-0.3 % Dropperette 2 drp OPHTHALMIC (EYE) Q1H PRN (Reason: Dry Eye(S)) rifaximin 550 mg Tablet 550 mg PO BID bisacodyl 10 mg Suppository 10 mg NE DAILY PRN (Reason: Constipation) Fleet Enema 19-7 gram/118 mL Enema 118 ml NE DAILY PRN (Reason: Constipation) norethindrone acetate 5 mg tablet 5 mg PO DAILY levothyroxine 100 mcg tablet 100 mcg PO DAILY@0600 Referrals: Acosta Montelongo DO [Primary Care Provider] - Print Language: Trinidadian
[2024-08-19] MEDS: levETIRAcetam in NaCl (iso-os) 1,000 MG/100 ML PIGGYBACK 400 MG IV (07:05)
--- NOTE | 2024-08-19 09:19 | PC.NURSE ---
Difficult blood stick, 3rd PCT trying now
[2024-08-19 09:48] LABS: Basophils Absolute Auto 0.1 X10*3/uL (0.0-0.2); Basophils Percent Auto 0.7 % (0-2); Eosinophils Absolute Auto 0.1 X10*3/uL (0.0-0.4); Eosinophils Percent Auto 0.5 % (0-4); Hematocrit 45.8 % (37.0-47.0); Hemoglobin 15.1 g/dl (12.0-16.0); Imm Gran Abs Auto 0.15 X10*3/uL (0.00-0.03); Imm Gran Pct Auto 1.2 % (0.0-0.4); Lymphocytes Absolute Auto 1.8 X10*3/uL (1.2-4.9); Lymphocytes Percent Auto 14.3 % (20-40); MANUAL DIFF FLAG SCAN; Mean Corpuscular Hemoglobin 29.8 pg (27.0-33.0); Mean Corpuscular Volume 90.3 fL (80.0-98.0); Monocytes Absolute Auto 0.5 X10*3/uL (0.1-1.2); Monocytes Percent Auto 4.1 % (2-11); Neutrophils Absolute Auto 10.2 x10*3/uL (2.0-8.3); Neutrophils Percent Auto 79.2 % (45-73); PLT CLUMP 1; Red Blood Count 5.07 X10*6/uL (4.20-5.50); Red Cell Distribution Width 14.2 % (11.0-16.0); SCAN SMEAR FLAG 1
[2024-08-19 10:01] LABS: Alanine Aminotransferase 18 U/L (0-31); Albumin Level 3.6 g/dL (3.5-5.0); Alkaline Phosphatase 84 U/L (39-117); Anion Gap 15 (12-20); Aspartate Amino Transferase 22 U/L (5-31); Bilirubin Direct 0.1 mg/dL (0.0-0.5); Bilirubin Total 0.3 mg/dL (0.0-1.0); Blood Urea Nitrogen 8 mg/dL (9-16); Calcium 9.1 mg/dL (8.4-10.2); Carbon Dioxide 16 mmol/L (22-29); Chloride 114 mmol/L (96-108); Creatinine Clr Calc Pharmacy 106.8; Estimated Glomerular Filt Rate > 60; Glucose Random 142 mg/dL (60-115); HCG Quantitative < 2 mIU/mL; Magnesium 2.1 mg/dL (1.6-2.6); Sodium 141 mmol/L (135-145); Total Protein 7.2 g/dL (6.5-8.0)
--- NOTE | 2024-08-19 10:23 | PC.NURSE ---
Patient up ambualting around ed, not able to medicate at this time, patient swinging at staff, yelling. resting in bed at this time with eyes closed
[2024-08-19 10:44] LABS: Platelet Count 132 X10*3/uL (160-400); White Blood Count 12.9 X10*3/uL (4.8-10.8)
[2024-08-19 10:45] LABS: SLIDE REVIEW VERIFIED
[2024-08-19 11:00] VITALS: BP 101/89; PULSE 104; RESP 18; TEMP 36.6; O2SAT 98
[2024-08-19] MEDS: LORazepam 2 MG/ML VIAL 1 MG IVPUSH (11:23)
--- NOTE | 2024-08-19 11:40 | PC.NURSE ---
Assumed care of this patient at 1100, patient continually getting OOB, unsteady on feet, not responding well to redirection, only speaks albanian. community nutrition educator Becky made aware, 1:1 to be acquired.
--- NOTE | 2024-08-19 12:00 | PC.NURSE ---
1:1 sitter at bedside, patient relatively calmer. PT/INR called as a recollect, Jennifer provider okayed to wait to attempt another draw until CT scan is back.
--- NOTE | 2024-08-19 13:15 | PHA.MEDREC ---
Addendum entered by Janice Marquez RPh 08/19/24 15:22: Med rec reviewed by [facility]. For novolog, there are 2 different sliding scales, one for BEFORE MEALS and one for THE EVENING WITH BEDTIME SNACK. Original Note: Pharmacy Consult ? Medication Reconciliation Pharmacy has completed the medication reconciliation. Confirmed med rec with list provided by Chintan at [place].
[2024-08-19 14:00] VITALS: BP 125/86; PULSE 96; RESP 16; O2SAT 98
[2024-08-19 19:35] VITALS: BP 144/88; PULSE 98; RESP 16; TEMP 36.7; O2SAT 98
[2024-08-23 02:33] LABS: Levetiracetam Keppra 33.8 mcg/mL (6.0-46.0)
== END 2024-08-19 19:36 | disposition skilled nursing facility (03) ==
PROVIDERS: Physician Assistant; Emergency Provider Emergency Medicine; PCP Hospitalist
DX: G40.909 Epilepsy, unspecified, not intractable, without status epilepticus (principal); S00.03XA Contusion of scalp, initial encounter; W01.198A Fall on same level from slipping, tripping and stumbling with subsequent striking against other object, initial encounter; E11.9 Type 2 diabetes mellitus without complications; E03.9 Hypothyroidism, unspecified; Y93.9 Activity, unspecified; Y92.122 Bedroom in nursing home as the place of occurrence of the external cause; Y99.9 Unspecified external cause status; Z79.899 Other long term (current) drug therapy
CPT/HCPCS: 36415; 70450; 71045; 72125; 80048; 80076; 80177; 83735; 84702; 85025; 96365; 96372; 96375; 99284; J1953; J2060

== ENCOUNTER → 2024-08-19 06:44 | Outpatient (BNV) | payer MEDICARE, MEDICAID, SELFPAY | PROVIDERS: Emergency Provider Emergency Medicine; Visit Provider Radiology Diagnostic Radiology | DX: R41.82 Altered mental status, unspecified (principal); G40.919 Epilepsy, unspecified, intractable, without status epilepticus | CPT/HCPCS: 70450; 71045; 72125 ==

== ENCOUNTER 2025-09-01 10:22 | Outpatient (AMB) | payer MEDICARE, MEDICAID, SELFPAY ==
--- NOTE | 2025-09-01 10:38 | A.OFFVIS_ITS ---
Intake Visit Reasons: 1YR Licensed Massage Practitioner Required: Yes Licensed Massage Practitioner Services: Licensed Massage Practitioner Offered & Declined (staff member to translate) Allergies cephalexin (From KEFLEX) Allergy (Unknown, Verified 09/01/25 10:50) UNKNOWN TUBERCULOSIS VACCINE Allergy (Unknown, Uncoded 09/01/25 10:50) UNKNOWN Medication List - Last Reconciled 09/01/25 by Antonia Torres, JAMSHID acetaminophen 650 mg PO Q4H PRN atorvastatin (Lipitor) 10 mg PO BEDTIME benztropine 1 mg PO BID bisacodyl 10 mg AL DAILY PRN calcium carbonate 2,000 mg PO Q1H PRN dextran 70-hypromellose (PF) 0.1-0.3 % (Artificial Tears (PF)) 2 drps ophthalmic (eye) Q1H PRN guaifenesin 200 mg PO Q4H PRN insulin aspart U-100 See Protocol sliding scale doses subcut BEDTIME insulin aspart U-100 (Novolog U-100 Insulin aspart) See Protocol sliding scale doses subcut TIDAC insulin glargine (Basaglar KwikPen U-100 Insulin) 30 units subcut BEDTIME insulin glargine (Basaglar KwikPen U-100 Insulin) 6 units subcut DAILY lacosamide (Vimpat) 200 mg PO BID lactulose 30 grams PO TID levetiracetam (Keppra) 1,500 mg PO BID levothyroxine 100 mcg PO DAILY@0600 loperamide 2 mg PO Q2H PRN MDD 8 MG multivitamin 1 tab PO DAILY norethindrone acetate 5 mg PO DAILY rifaximin 550 mg PO BID risperidone 2 mg PO BID sennosides (senna) 8.6 mg PO DAILY PRN sodium phosphates 19-7 gram/118 mL (Fleet Enema) 118 mL AL DAILY PRN topiramate 50 mg PO BID HPI Comments Details: She was doing okay. No seizures. No falls. Sleep at night was okay, but woke up feeling tired in the morning. On 08/19/2024, she had a slip and fall and struck her head with right frontal scalp hematoma. In the ER, she had a generalized seziure with tongue biting. Was given ativan and 1 gm Keppra IV. Keppra level was high therapeutic at 33.8. Had seizure on 07/05/2019. Mild headaches relieved by meds. Feels sleepy. No significant dizziness. She has a history of mild hypoxic encephalopathy and a long history of convulsions with no medical records available. No records are available from [place]. The patient herself is not aware of it. She was living at [facility] in [place] and they wanted evaluation of convulsions. She is also treated for a brittle diabetes as well as a psychiatric illness that's been labeled as bipolar disorder. [facility] Medical History Diabetes Bipolar disorder Anoxic brain injury Hypothyroidism Epileptic seizure Social History Household Members: Other Housing: Skilled Nursing Do you presently have visiting nurse or other home services: No Patient Tobacco Use Status: Never used Tobacco service: No Review of Systems Const Denies chills, Denies daytime sleepiness, Denies difficulty sleeping, Denies fatigue, Denies fever(s), Denies frequent falls, Reports headache(s), Denies increased appetite, Denies poor appetite, Denies snoring, Denies weakness, Denies weight gain and Denies weight loss Eyes Denies loss of vision ENT Denies vertigo, Denies dizziness, Reports headache(s) and Denies neck pain Card Denies chest pain at rest, Denies chest pain with activity, Denies syncope, Denies leg edema, Denies palpitations, Denies dyspnea and Denies dyspnea on exertion Resp Denies cough, Denies dyspnea, Denies dyspnea on exertion and Denies snoring GI Denies abdominal pain, Denies constipation, Denies heartburn, Denies diarrhea and Denies nausea Denies urinary frequency, Denies urinary incontinence and Denies urinary urgency Musc Denies abnormal gait, Denies back pain, Denies myalgias, Denies arthralgias, Denies neck pain, Denies numbness and Denies tingling Neuro Denies abnormal gait, Denies vertigo, Denies dizziness, Denies syncope, Denies frequent falls, Reports headache(s), Denies lack of coordination, Denies loss of vision, Denies memory loss, Denies numbness, Denies Other visual disturbances, Denies restless legs, Denies seizure-like activity, Denies tingling, Denies paresthesias, Denies tremor(s) and Denies weakness Psych Denies anxiety, Denies depression, Denies auditory hallucinations, Denies memory loss and Denies visual hallucinations Endo Denies fatigue and Denies palpitations Physical Exam Const Other: General Appearance:? normal, in no acute distress. Heart:? S1, S2 normal, no murmurs. Lungs:? clear anteriorly and posteriorly. Musculoskeletal:? normal. Extremities:? no edema. Psych:? alert, oriented, cognitive function intact, cooperative with exam. Neuro Other: Abnormal Neurological Findings:?Mentally slow. Mental Status: alert and oriented X 3. Normal attention, orientation, memory, and affect. Mentally slow. Cranial Nerves: Pupils are equal, round, and reactive to light. External ocular muscles are intact. Visual barry are full, no ptosis. Face is symmetrical, no facial weakness or droop. Facial sensations are normal. Tongue protrudes in midline. Palate elevates symmetrically. Shoulder shrugging is normal Motor Examination: Normal muscle tone, bulk and strength. No atrophy or fasciculations. No drift of the extended upper extremities. DTR 2+. Plantars are flexor. Sensory Exam: Normal light touch, temperature, pinprick, vibration, and joint- position sensations. Rhomberg sign is absent. Coordination: No ataxia. No titubation. Gait Exam: Within normal limits. Cerebellar Signs: [id number] is okay. Extrapyramidal System: No tremor, rigidity with normal facial expressions. No bradykinesia. No bradyphrenia. Normal arm swing and posture. No propulsion or retropulsion. Speech: Normal. Results Reviewed Results Reviewed: 01/24/18 EEG-WNL, awake, sleep 05/13/18 CT shows severe atrophy and bilateral temporoparietal encephalomalacia 08/19/24 CT brain unchanged Assessment & Plan Assessment & Plan (1) Seizure disorder: Code(s): G40.909 - Epilepsy, unspecified, not intractable, without status epilepticus Category: Medical Plan: Continue levetiracetam 750mg 2 tablets twice a day. Continue lacosamide 200mg 1 tablet twice a day. Continue topiramate 50mg 1 tablet twice a day. Follow up in 1 year or sooner as needed. (2) TBI (traumatic brain injury): Code(s): S06.9XAA - Unspecified intracranial injury with loss of consciousness status unknown, initial encounter Category: Medical Qualifiers: Encounter type: sequela Loss of consciousness presence/duration: unknown LOC status Qualified Code(s): S06.9XAS - Unspecified intracranial i njury with loss of consciousness status unknown, sequela Plan . Coding Level of Care Code Est Pt Level 4 (31027) Diagnoses Seizure disorder G40.909 Traumatic brain injury, with unknown loss of consciousness status, sequela S06.9XAS Encounter type: sequela Loss of consciousness presence/duration: unknown LOC status
--- OUTSIDE RECORDS SUMMARY | 2025-09-01 12:47 | XMS_ITS | Encounter Summary ---
Author Organization [facility] Address [address] [place] [address] Care Team Providers Care Alligator Shear Operator Name Role Phone Acosta Montelongo MD Primary Care Provider [phone] Encounter Details Date Type Department Care Team (Late st Contact Info) Description 10/26/2024 Lab Requisition [facility] - Main Lab [address] [place] [address] Acosta Montelongo MD [address] [place] [address] [address] [place], [place] Anoxic brain damage, not elsewhere classified (CMS/HCC V24, CMS/HCC V28); Hyperlipidemia, unspecified; Hypothyroidism, unspecified Social History Tobacco Use Types Packs/Day Years Used Date Smoking Tobacco: Never Assessed Comments Unknown Sex and Gender Information Value Date Recorded Sex Assigned at Not on file Legal Sex Female 5:42 AM EST Gender Identity Not on file Sexual Orientation Not on file documented as of this encounter Plan of Treatment Not on file documented as of this encounter Procedures Procedure Name Priority Date/Time Associated Diagnosis Comments LIPID PANEL WITH REFLEX TO DIRECT LDL Routine 10/26/2024 7:22 AM EST Anoxic brain damage, not elsewhere classified (CMS/HCC) Hyperlipidemia, unspecified Hypothyroidism, unspecified THYROXINE FREE Routine 10/26/2024 7:22 AM EST Anoxic brain damage, not elsewhere classified (CMS/HCC) Hyperlipidemia, unspecified Hypothyroidism, unspecified documented in this encounter Results * Thyroxine free (10/26/2024 7:22 AM EST) Free T4 1.18 0.70 - 1.80 ng/dL LAB CHEMISTRY METHOD 10/26/2024 9:24 AM EST [facility] Blood Venous blood specimen / Unknown 10/26/2024 7:22 AM EST 10/26/2024 8:12 AM EST us Acosta Montelongo MD LAB BLOOD ORDERABLES Final Resul t [facility] [address] [place] [address], [place] [phone] * (ABNORMAL) Lipid panel with reflex to direct LDL (10/26/2024 7:22 AM EST) Cholesterol 215(H) 0 - 200 mg/dL LAB CHEMISTRY METHOD 10/26/2024 9:03 AM [facility] Triglycerides 109 0 - 150 mg/dL LAB CHEMISTRY METHOD 10/26/2024 9:03 AM [facility] HDL 37(L) >=40 mg/dL LAB CHEMISTRY METHOD 10/26/2024 9:03 AM [facility] LDL Calculated 156(H) 0 - 100 mg/dL LAB CHEMISTRY METHOD 10/26/2024 9:03 AM [facility] VLDL Cholesterol Diego 21.8 mg/dL LAB CHEMISTRY METHOD 10/26/2024 9:03 AM [facility] Non HDL Chol. (LDL+VLDL) 178(H) <145 mg/dL LAB CHEMISTRY METHOD 10/26/2024 9:03 AM [facility] Chol/HDL Ratio 5.8(H) 0.0 - 4.4 LAB CHEMISTRY METHOD 10/26/2024 9:03 AM [facility] Blood Venous blood specimen / Unknown 10/26/2024 7:22 AM EST 10/26/2024 8:12 AM EST us Acosta Montelongo MD LAB BLOOD ORDERABLES Final Resul t [facility] [address] [place] [address], [place] [phone] documented in this encounter Visit Diagnoses Diagnosis Anoxic brain damage, not elsewhere classified (CMS/HCC V24, CMS/[facility] V28) Hyperlipidemia, unspecified Hypothyroidism, unspecified documented in this encounter Care Teams Alligator Shear Operator Relationship Specialty Start Date End Date Acosta Montelongo MD [address] [place] [address] Dr [address] THEE Rossi PCP - General Internal Medicine 10/26/24 documented as of this encounter
--- OUTSIDE RECORDS SUMMARY | 2025-09-01 12:47 | XMS_ITS | Encounter Summary ---
Author Organization [facility] Address [address] [place] [address] Care Team Providers Care Stream Control Officer Name Role Phone Acosta Montelongo MD Primary Care Provider Encounter Details Date Type Department Care Team (Late st Contact Info) Description 01/20/2025 Lab Requisition [facility] - Main Lab [address] [facility] [place] [address] Acosta Montelongo MD [address] [place] [address] [address] [place], [place] Other nursing home (current) drug therapy Social History Tobacco Use Types Packs/Day Years [...] PANEL WITH REFLEX TO DIRECT LDL Routine 01/20/2025 6:38 AM EDT Other nursing home (current) drug therapy documented in this encounter Results * (ABNORMAL) Lipid panel with reflex to direct LDL (01/20/2025 6:38 AM EDT) Cholesterol 138 0 - 200 mg/dL LAB CHEMISTRY METHOD 01/20/2025 8:25 AM EDT [facility] Triglycerides 53 0 - 150 mg/dL LAB CHEMISTRY METHOD 01/20/2025 8:25 AM EDT [facility] HDL 36(L) >=40 mg/dL LAB CHEMISTRY METHOD 01/20/2025 8:25 AM EDT [facility] LDL Calculated 91 0 - 100 mg/dL LAB CHEMISTRY METHOD 01/20/2025 8:25 AM EDT [facility] VLDL Cholesterol Diego 10.6 mg/dL LAB CHEMISTRY METHOD 01/20/2025 8:25 AM EDT [facility] Non HDL Chol. (LDL+VLDL) 102 <145 mg/dL LAB CHEMISTRY METHOD 01/20/2025 8:25 AM EDT [facility] Chol/HDL Ratio 3.8 0.0 - 4.4 LAB CHEMISTRY METHOD 01/20/2025 8:25 AM EDT [facility] Blood Venous blood specimen / Unknown 01/20/2025 6:38 AM EDT 01/20/2025 7:45 AM EDT us Acosta Montelongo MD LAB BLOOD ORDERABLES Final Resul t [facility] [address] [place] [address], documented in this encounter Visit Diagnoses Diagnosis Other parts counterman (current) drug therapy documented in this encounter Care Teams Stream Control Officer Relationship Specialty Start Date End Date Acosta Montelongo MD [address] THEE Rossi PCP - General Internal Medicine 10/26/24 documented as of this encounter
--- OUTSIDE RECORDS SUMMARY | 2025-09-01 12:47 | XMS_ITS | Encounter Summary ---
Author Organization [facility] Address [address] [place] [address] Care Team Providers Care White Sugar Boiler Name Role Phone Acosta Montelongo MD Primary Care Provider [phone] Encounter Details Date Type Department Care Team (Late st Contact Info) Description 11/23/2024 Lab Requisition [facility] - Main Lab [address] [facility] [place] [address] Acosta Montelongo MD [address] [place] [address] Dr [address] [place], [place] Anoxic brain damage, not elsewhere classified (CMS/HCC V24, CMS/HCC V28); Hyperlipidemia, unspecified; Hypothyroidism, unspecified; Type 1 diabetes mellitus with ketoacidosis with coma (CMS/HCC V24, CMS/HCC V28) Social History Tobacco Use Types Packs/Day Years [...] PANEL WITH REFLEX TO DIRECT LDL Routine 11/23/2024 7:06 AM EDT Anoxic brain damage, not elsewhere classified Hyperlipidemia, unspecified Hypothyroidism, unspecified Type 1 diabetes mellitus with ketoacidosis with coma (CMS/HCC) CBC WITH AUTO DIFFERENTIAL Routine 11/23/2024 7:06 AM EDT Anoxic brain damage, not elsewhere classified Hyperlipidemia, unspecified Hypothyroidism, unspecified Type 1 diabetes mellitus with ketoacidosis with coma (CMS/HCC) LEVETIRACETAM LEVEL Routine 11/23/2024 7:06 AM EDT Anoxic brain damage, not elsewhere classified Hyperlipidemia, unspecified Hypothyroidism, unspecified Type 1 diabetes mellitus with ketoacidosis with coma (CMS/HCC) CBC AND DIFFERENTIAL Routine 11/23/2024 7:06 AM EDT Anoxic brain damage, not elsewhere classified Hyperlipidemia, unspecified Hypothyroidism, unspecified Type 1 diabetes mellitus with ketoacidosis with coma (CMS/HCC) THYROID STIMULATING HORMONE Routine 11/23/2024 7:06 AM EDT Anoxic brain damage, not elsewhere classified Hyperlipidemia, unspecified Hypothyroidism, unspecified Type 1 diabetes mellitus with ketoacidosis with coma (CMS/HCC) THYROXINE FREE Routine 11/23/2024 7:06 AM EDT Anoxic brain damage, not elsewhere classified Hyperlipidemia, unspecified Hypothyroidism, unspecified Type 1 diabetes mellitus with ketoacidosis with coma (CMS/HCC) HEMOGLOBIN A1C Routine 11/23/2024 7:06 AM EDT Anoxic brain damage, not elsewhere classified Hyperlipidemia, unspecified Hypothyroidism, unspecified Type 1 diabetes mellitus with ketoacidosis with coma (CMS/HCC) AMMONIA Routine 11/23/2024 7:06 AM EDT Anoxic brain damage, not elsewhere classified Hyperlipidemia, unspecified Hypothyroidism, unspecified Type 1 diabetes mellitus with ketoacidosis with coma (CMS/HCC) HEPATIC FUNCTION PANEL Routine 11/23/2024 7:06 AM EDT Anoxic brain damage, not elsewhere classified Hyperlipidemia, unspecified Hypothyroidism, unspecified Type 1 diabetes mellitus with ketoacidosis with coma (CMS/HCC) COMPREHENSIVE METABOLIC PANEL Routine 11/23/2024 7:06 AM EDT Anoxic brain damage, not elsewhere classified Hyperlipidemia, unspecified Hypothyroidism, unspecified Type 1 diabetes mellitus with ketoacidosis with coma (CMS/HCC) documented in this encounter Results * (ABNORMAL) CBC auto differential (11/23/2024 7:06 AM EDT) [facility] WBC 9.9 4.8 - 10.8 /[facility] LAB HEMETOLOGY METHOD 11/23/2024 8:12 AM EDT [facility] RBC 4.10 3.80 - 4.80 M/mcL LAB HEMETOLOGY METHOD 11/23/2024 8:12 AM [facility] Hemoglobin 12.3 11.5 - 16.0 g/dL LAB HEMETOLOGY METHOD 11/23/2024 8:12 AM [facility] Hematocrit 38.5 35.0 - 47.0 % LAB HEMETOLOGY METHOD 11/23/2024 8:12 AM [facility] MCV 93.7 79.0 - 98.0 FL LAB HEMETOLOGY METHOD 11/23/2024 8:12 AM [facility] MCH 29.9 27.0 - 32.0 pcg LAB HEMETOLOGY METHOD 11/23/2024 8:12 AM [facility] MCHC 31.9(L) 32.0 - 37.0 g/dL LAB HEMETOLOGY METHOD 11/23/2024 8:12 AM [facility] RDW 13.6 11.0 - 15.0 % LAB HEMETOLOGY METHOD 11/23/2024 8:12 AM [facility] Platelets 177 130 - 400 K/mcL LAB HEMETOLOGY METHOD 11/23/2024 8:12 AM [facility] MPV 12.2(H) 7.0 - 11.0 FL LAB HEMETOLOGY METHOD 11/23/2024 8:12 AM [facility] NRBC 0.0 <1.0 % LAB HEMETOLOGY METHOD 11/23/2024 8:12 AM [facility] NRBC Absolute 0.00 <0.10 K/mcL LAB HEMETOLOGY METHOD 11/23/2024 8:12 AM [facility] Neutrophils Relative 53.2 % LAB HEMETOLOGY METHOD 11/23/2024 8:12 AM [facility] Lymphocytes Relative 37.1 % LAB HEMETOLOGY METHOD 11/23/2024 8:12 AM [facility] Monocytes Relative 6.4 % LAB HEMETOLOGY METHOD 11/23/2024 8:12 AM [facility] Eosinophils Relative 2.5 % LAB HEMETOLOGY METHOD 11/23/2024 8:12 AM [facility] Basophils Relative 0.6 % LAB HEMETOLOGY METHOD 11/23/2024 8:12 AM [facility] Immature Granulocytes Relative 0.2 % LAB HEMETOLOGY METHOD 11/23/2024 8:12 AM [facility] Neutrophils Absolute 5.28 1.50 - 7.00 K/mcL LAB HEMETOLOGY METHOD 11/23/2024 8:12 AM [facility] Lymphocytes Absolute 3.68 1.00 - 5.00 K/mcL LAB HEMETOLOGY METHOD 11/23/2024 8:12 AM [facility] Monocytes Absolute 0.64 0.20 - 1.00 K/mcL LAB HEMETOLOGY METHOD 11/23/2024 8:12 AM [facility] Eosinophils Absolute 0.25 0.00 - 0.50 K/mcL LAB HEMETOLOGY METHOD 11/23/2024 8:12 AM [facility] Basophils Absolute 0.06 0.00 - 0.20 K/mcL LAB HEMETOLOGY METHOD 11/23/2024 8:12 AM [facility] Immature Granulocytes Absolute 0.02 0.00 - 0.03 K/mcL LAB HEMETOLOGY METHOD 11/23/2024 8:12 AM [facility] Blood Venous blood specimen / Unknown 11/23/2024 7:06 AM EDT 11/23/2024 7:46 AM EDT us Acosta Montelongo MD LAB BLOOD ORDERABLES Final Resul t [facility] [address] [place] [address], [place] [phone] * (ABNORMAL) Thyroid stimulating hormone (11/23/2024 7:06 AM EDT) TSH 4.61(H) 0.40 - 4.00 mcIU/mL LAB CHEMISTRY METHOD 11/23/2024 10:53 AM EDT [facility] Blood Venous blood specimen / Unknown 11/23/2024 7:06 AM EDT 11/23/2024 7:46 AM EDT us Acosta Montelongo MD LAB BLOOD ORDERABLES Final Resul t Performing Organization Address [facility] Co de Phone Number [facility] [address] [place] [address], [place] [phone] * (ABNORMAL) Hemoglobin A1c (11/23/2024 7:06 AM EDT) Hemoglobin A1C 10.6(H) <6.5 % LAB CHEMISTRY METHOD 11/23/2024 2:01 PM EDT [facility] Mean Bld Glu Estim. 258 mg/dL LAB CHEMISTRY METHOD 11/23/2024 2:01 PM EDT [facility] Blood Venous blood specimen / Unknown 11/23/2024 7:06 AM EDT 11/23/2024 7:46 AM EDT us Acosta Montelongo MD LAB BLOOD ORDERABLES Final Resul t Performing Organization Address City/[facility]/ZIP Co de Phone Number [facility] [address] [place] [address], [place] [phone] * Thyroxine free (11/23/2024 7:06 AM EDT) Free T4 1.06 0.70 - 1.80 ng/dL LAB CHEMISTRY METHOD 11/23/2024 10:54 AM EDT [facility] Blood Venous blood specimen / Unknown 11/23/2024 7:06 AM EDT 11/23/2024 7:46 AM EDT us Acosta Montelongo MD LAB BLOOD ORDERABLES Final Resul t Performing Organization Address [facility]/ZIP Co de Phone Number [facility] [address] [place] [address], [place] [phone] * Levetiracetam level (11/23/2024 7:06 AM EDT) Levetiracetam 32.2 3.0 - 60.0 ug/mL 11/25/2024 4:56 AM EDT [facility] Comment: Steady state trough serum or plasma levels following doses of 1000 to 3000 mg/Day: 3 to 37 ug/mL. The same dosage regimen will typically result in peak levels of 10 to 60 ug/mL, at approximately 1.5 hours post dose. If applicable, any drug confirmation testing reported here was developed and the performance characteristics determined by [facility]. This confirmation testing has not been cleared or approved by the FDA. The laboratory is regulated under CLIA as qualified to perform high-complexity testing. This test is used for patient testing purposes. It should not be regarded as investigational or for research. Test performed at [facility], [address] , [place] [address] Trish Gerardo MD, PhD - Camera Repairman Blood Venous blood specimen / Unknown 11/23/2024 7:06 AM EDT 11/23/2024 7:46 AM EDT us Acosta Montelongo MD LAB BLOOD ORDERABLES Final Resul t [facility] [address] [place] [address] * (ABNORMAL) Ammonia (11/23/2024 7:06 AM EDT) Ammonia 54(H) 11 - 35 mcmol/L LAB CHEMISTRY METHOD 11/23/2024 10:53 AM EDT [facility] Comment:Hemolysis present Blood Venous blood specimen / Unknown 11/23/2024 7:06 AM EDT 11/23/2024 7:46 AM EDT us Acosta Montelogno MD LAB BLOOD ORDERABLES Final Resul t [facility] [address] [place] [address], [place] [phone] * (ABNORMAL) Hepatic function panel (11/23/2024 7:06 AM EDT) Total Protein 6.4 6.0 - 8.0 g/dL LAB CHEMISTRY METHOD 11/23/2024 10:54 AM [facility] Albumin 3.1(L) 3.2 - 5.0 g/dL LAB CHEMISTRY METHOD 11/23/2024 10:54 AM [facility] Total Bilirubin 0.6 0.0 - 1.4 mg/dL LAB CHEMISTRY METHOD 11/23/2024 10:54 AM [facility] Bilirubin, Direct 0.2 0.0 - 0.3 mg/dL LAB CHEMISTRY METHOD 11/23/2024 10:54 AM [facility] Bilirubin, Indirect 0.4 0.0 - 1.1 mg/dL LAB CHEMISTRY METHOD 11/23/2024 10:54 AM [facility] ALT (SGPT) 20 10 - 60 unit/L LAB CHEMISTRY METHOD 11/23/2024 10:54 AM [facility] AST (SGOT) 15 10 - 42 unit/L LAB CHEMISTRY METHOD 11/23/2024 10:54 AM [facility] Alkaline Phosphatase 83 42 - 121 unit/L LAB CHEMISTRY METHOD 11/23/2024 10:54 AM [facility] Blood Venous blood specimen / Unknown 11/23/2024 7:06 AM EDT 11/23/2024 7:46 AM EDT us Acosta Montelongo MD LAB BLOOD ORDERABLES Final Resul t [facility] [address] [place] [address], [place] [phone] * (ABNORMAL) Lipid panel with reflex to direct LDL (11/23/2024 7:06 AM EDT) Cholesterol 119 0 - 200 mg/dL LAB CHEMISTRY METHOD 11/23/2024 10:54 AM EDT [facility] Triglycerides 49 0 - 150 mg/dL LAB CHEMISTRY METHOD 11/23/2024 10:54 AM T [facility] HDL 38(L) >=40 mg/dL LAB CHEMISTRY METHOD 11/23/2024 10:54 AM EDT [facility] LDL Calculated 71 0 - 100 mg/dL LAB CHEMISTRY METHOD 11/23/2024 10:54 AM EDT [facility] VLDL Cholesterol Diego 9.8 mg/dL LAB CHEMISTRY METHOD 11/23/2024 10:54 AM T [facility] Non HDL Chol. (LDL+VLDL) 81 <145 mg/dL LAB CHEMISTRY METHOD 11/23/2024 10:54 AM EDT [facility] Chol/HDL Ratio 3.1 0.0 - 4.4 LAB CHEMISTRY METHOD 11/23/2024 10:54 AM T [facility] Blood Venous blood specimen / Unknown 11/23/2024 7:06 AM EDT 11/23/2024 7:46 AM EDT us Acosta Montelongo MD LAB BLOOD ORDERABLES Final Resul t Performing Organization Address City/[facility]/ZIP Co de Phone Number [facility] [address] [place] [address], [place] [phone] * (ABNORMAL) Comprehensive metabolic panel (11/23/2024 7:06 AM EDT) Sodium 133 133 - 145 mmol/L LAB CHEMISTRY METHOD 11/23/2024 10:54 AM [facility] Potassium 4.7 3.5 - 5.5 mmol/L LAB CHEMISTRY METHOD 11/23/2024 10:54 AM [facility] Chloride 104 96 - 110 mmol/L LAB CHEMISTRY METHOD 11/23/2024 10:54 AM [facility] CO2 22 21 - 32 mmol/L LAB CHEMISTRY METHOD 11/23/2024 10:54 AM [facility] Anion Gap 7 3 - 11 LAB CHEMISTRY METHOD 11/23/2024 10:54 AM [facility] Glucose 289(H) 70 - 100 mg/dL LAB CHEMISTRY METHOD 11/23/2024 10:54 AM [facility] BUN 13 5 - 25 mg/dL LAB CHEMISTRY METHOD 11/23/2024 10:54 AM [facility] Creatinine 1.11(H) 0.50 - 1.10 mg/dL LAB CHEMISTRY METHOD 11/23/2024 10:54 AM [facility] eGFR 65 >=60 mL/min/1. 73m2 LAB CHEMISTRY METHOD 11/23/2024 10:54 AM [facility] Comment:Calculation based on the Chronic Kidney Disease Epidemiology Collaboration (CKD-EPI) equation refit without adjustment for race. BUN/Creatinine Ratio 11.7 LAB CHEMISTRY METHOD 11/23/2024 10:54 AM [facility] Calcium 8.5 8.5 - 10.5 mg/dL LAB CHEMISTRY METHOD 11/23/2024 10:54 AM [facility] AST (SGOT) 15 10 - 42 unit/L LAB CHEMISTRY METHOD 11/23/2024 10:54 AM [facility] ALT (SGPT) 20 10 - 60 unit/L LAB CHEMISTRY METHOD 11/23/2024 10:54 AM EDT [facility] Alkaline Phosphatase 83 42 - 121 unit/L LAB CHEMISTRY METHOD 11/23/2024 10:54 AM EDT [facility] Total Protein 6.4 6.0 - 8.0 g/dL LAB CHEMISTRY METHOD 11/23/2024 10:54 AM EDT [facility] Albumin 3.1(L) 3.2 - 5.0 g/dL LAB CHEMISTRY METHOD 11/23/2024 10:54 AM EDT [facility] Total Bilirubin 0.6 0.0 - 1.4 mg/dL LAB CHEMISTRY METHOD 11/23/2024 10:54 AM EDT [facility] Blood Venous blood specimen / Unknown 11/23/2024 7:06 AM EDT 11/23/2024 7:46 AM EDT us Acosta Montelongo MD LAB BLOOD ORDERABLES Final Resul t [facility] [address] [place] [address], documented in this encounter Visit Diagnoses Diagnosis Anoxic brain damage, not elsewhere classified (CMS/HCC V24, CMS/HCC V28) Hyperlipidemia, unspecified Hypothyroidism, unspecified Type 1 diabetes mellitus with ketoacidosis with coma (CMS/HCC V24, CMS/[facility] V28) documented in this encounter Care Teams White Sugar Boiler Relationship Specialty Start Date End Date Acosta Montelongo MD [address] [place] [address] PCP - General Internal Medicine 10/26/24 documented as of this encounter
--- OUTSIDE RECORDS SUMMARY | 2025-09-01 12:48 | XMS_ITS | Encounter Summary ---
Author Organization [facility] Address [address] [place] [address] Care Team Providers Care Brain Picker Name Role Phone Acosta Montelongo MD Primary Care Provider [phone] Encounter Details Date Type Department Care Team (Late st Contact Info) Description 08/26/2025 Lab Requisition [facility] - Main Lab [address] [facility] [place] [address] Acosta Montelongo MD [address] [place] [address] [address] [place], [place] Disorder of urea cycle metabolism, unspecified (CMS/HCC V24); Encounter for other specified special examinations Social History Tobacco Use Types Packs/Day Years [...] Procedure Name Priority Date/Time Associated Diagnosis Comments AMMONIA Routine 08/26/2025 7:17 AM EST Disorder of urea cycle metabolism, unspecified (CMS/HCC V24) Encounter for other specified special examinations COMPREHENSIVE METABOLIC PANEL Routine 08/26/2025 7:17 AM EST Disorder of urea cycle metabolism, unspecified (CMS/HCC V24) Encounter for other specified special examinations documented in this encounter Results * (ABNORMAL) Ammonia (08/26/2025 7:17 AM EST) Ammonia 45(H) 11 - 35 mcmol/L 08/26/2025 8:16 AM EST [facility] Blood Venous blood specimen / Unknown 08/26/2025 7:17 AM EST 08/26/2025 7:52 AM EST us Acosta Montelongo MD LAB BLOOD ORDERABLES Final Resul t [facility] [address] [place] [address], * (ABNORMAL) Comprehensive metabolic panel (08/26/2025 7:17 AM EST) Sodium 140 133 - 145 mmol/L 08/26/2025 8:22 AM [facility] Potassium 4.2 3.5 - 5.5 mmol/L 08/26/2025 8:22 AM [facility] Chloride 110 96 - 110 mmol/L 08/26/2025 8:22 AM [facility] CO2 22 21 - 32 mmol/L 08/26/2025 8:22 AM [facility] Anion Gap 8 3 - 11 08/26/2025 8:22 AM [facility] Glucose 186(H) 70 - 100 mg/dL 08/26/2025 8:22 AM [facility] BUN 13 5 - 25 mg/dL 08/26/2025 8:22 AM [facility] Creatinine 1.20(H) 0.50 - 1.10 mg/dL 08/26/2025 8:22 AM [facility] eGFR 59(L) >=60 mL/min/1. 73m2 08/26/2025 8:22 AM [facility] Comment:Calculation based on the Chronic Kidney Disease Epidemiology Collaboration (CKD-EPI) equation refit without adjustment for race. BUN/Creatinine Ratio 10.8 08/26/2025 8:22 AM [facility] Calcium 8.9 8.5 - 10.5 mg/dL 08/26/2025 8:22 AM [facility] AST (SGOT) 15 10 - 42 unit/L 08/26/2025 8:22 AM [facility] ALT (SGPT) 18 10 - 60 unit/L 08/26/2025 8:22 AM EST [facility] Alkaline Phosphatase 92 42 - 121 unit/L 08/26/2025 8:22 AM [facility] Total Protein 7.4 6.0 - 8.0 g/dL 08/26/2025 8:22 AM [facility] Albumin 4.2 3.2 - 5.0 g/dL 08/26/2025 8:22 AM [facility] Total Bilirubin 0.5 0.0 - 1.4 mg/dL 08/26/2025 8:22 AM [facility] Blood Venous blood specimen / Unknown 08/26/2025 7:17 AM EST 08/26/2025 7:52 AM EST us Acosta Montelongo MD LAB BLOOD ORDERABLES Final Resul t [facility] [address] [place] [address], documented in this encounter Visit Diagnoses Diagnosis Disorder of urea cycle metabolism, unspecified (CMS/HCC V24) Encounter for other specified special examinations documented in this encounter Care Teams Brain Picker Relationship Specialty Start Date End Date Acosta Montelongo MD [address] [place] [address] Dr [address] [facility] [place], [place] PCP - General Internal Medicine 10/26/24 documented as of this encounter
--- OUTSIDE RECORDS SUMMARY | 2025-09-01 12:48 | XMS_ITS | Clinical Summary ---
Author Organization [facility] Address [address] [employer] [facility] [address] [place] [address] Phone Care Team Providers Care Boarding House Manager Name Role Phone Jayda Acosta Devante Primary Care Provider [phone] Allergies Active Allergy Reactions Criticality Noted Date Comments Cephalexin 12/31/2017 Medications lactulose (CONSTULOSE) 10 gram/15 mL (15 mL) Soln Take by mouth. Active levothyroxine (SYNTHROID, LEVOTHROID) 100 MCG tablet Take 100 mcg by mouth every morning. Active multivitamin with minerals (ONE DAILY COMPLETE ORAL) Take by mouth. Active OLANZapine (ZYPREXA) 5 MG tablet Take 5 mg by mouth nightly at bedtime. Active topiramate (TOPAMAX) 50 MG tablet Take 50 mg by mouth 2 (two) times a day. Active levETIRAcetam (KEPPRA) 750 MG tablet Take 750 mg by mouth 2 (two) times a day. Active benztropine (COGENTIN) 1 MG tablet Take 1 mg by mouth 2 (two) times a day. Active sodium phosphate,mono-di basic (FLEET ENEMA RECT) Place rectally. Active LORazepam (ATIVAN) 2 mg/mL concentrated solution Take 1 mg by mouth every 8 (eight) hours as needed. Active senna (SENOKOT) 8.6 mg tablet Take 1 tablet by mouth daily. Active acetaminophen (TYLENOL) 325 mg tablet Take 650 mg by mouth every 4 (four) hours as needed for fever. Active amitriptyline (ELAVIL) 10 MG tablet Take 10 mg by mouth nightly at bedtime. Active bisacodyl (DULCOLAX) [address] 10 mg rectally daily. Active glucagon (GLUCAGON, HUMAN RECOMBINANT,) 1 mg injection Active calcium carbonate 500 mg (200 mg elemental) chewable tablet Take 1 tablet by mouth daily. Active lacosamide (VIMPAT) 200 mg Tab Take 200 mg by mouth 2 (two) times a day. Active insulin aspart U-100 (NOVOLOG) 100 unit/mL injection vial Inject under the skin 3 (three) times a day before meals. Sliding scale Active dextrose (GLUTOSE) 40 % gel Take 15 g by mouth once. Active haloperidol lactate (HALDOL) 2 mg/mL solution Take by mouth 2 (two) times a day. Active loperamide (IMODIUM A-D) 2 mg tablet Take 2 mg by mouth 4 (four) times a day as needed for diarrhea. Active insulin detemir U-100 (LEVEMIR) 100 unit/mL injection vial Inject under the skin nightly at bedtime. Active lanolin/mineral oil/petrolatum (ARTIFICIAL TEARS OPHT) Apply 2 drops to eye every hour as needed. Active risperiDONE (RISPERDAL) 2 MG tablet Take 2 mg by mouth 2 (two) times a day. Active guaiFENesin (ROBITUSSIN) 100 mg/5 mL syrup Take 10 mL by mouth every 4 (four) hours as needed for cough. Active BASAGLAR KWIKPEN U-100 INSULIN 100 unit/mL (3 mL) InPn injection pen 4 Active BD AUTOSHIELD DUO PEN NEEDLE 30 gauge x 11/29 Ndle 4 Active norethindrone (AYGESTIN) 5 mg tablet Take 1 tablet (5 mg total) by mouth daily. 90 tablet 3 4 Active Active Problems Problem Noted Date Diagnosed Date Abnormal uterine bleeding 11/23/2020 Assessment & Plan (03/07/2023 10:50 AM EDT): Patient reports her vaginal bleeding is much improved on Aygestin Her cycles are regular and her period lasts 3-5 days with light to moderate bleeding Denies spotting between periods Plan to continue daily Aygestin Follow up at next annual exam or sooner as indicated Assessment & Plan (11/30/2022 11:01 AM EDT): Patient reports spotting between periods Plan trial of daily Aygestin, rx sent to pharmacy Follow up in 3 months, if no improvement consider pelvic US/endometrial biopsy at that time Assessment & Plan (11/23/2020 10:34 AM EST): Most likely etiology of this apparently first episode of irregular menstrual bleeding is likely an anovulatory cycle. Since bleeding has stopped, I have suggested expectant management. Discussed with caregiver keeping a menstrual calendar and if there is a recurrence of AUB follow-up to be scheduled. More likely than not patient will return to her usual menstrual pattern. May continue to use 400-600 mg ibuprofen twice daily-3 times daily as needed menstrual cramps. Social History Tobacco Use Types Packs/Day Years Used Date Smoking Tobacco: Never Smokeless Tobacco: Never Tobacco Cessation:Counseling Given: Not Answered Alcohol Use Standard Drinks/Week Comments Never 0 (1 standard drink = 0.6 oz pur e alcohol) Education Answer Date Recorded Are you interested in more education? Not on lata e 01/11/2023 Are you concerned about learning? Not on file 01/11/2023 No 01/11/2023 No 01/11/2023 Digital Access Answer Date Recorded No 02/09/2023 No 02/09/2023 Reliable internet access at home? Not on file 02/09/2023 Device with a working camera? Not on file Comments No Sex and Gender Information Value Date Recorded Sex Assigned at Not on file Legal Sex Female 2:10 PM EST Gender Identity Not on file Sexual Orientation Not on file Last Filed Vital Signs Vital Sign Reading Time Taken Comments Blood Pressure 120/80 08/07/2024 1:36 PM EST Pulse - - Temperature - - Respiratory Rate - - Oxygen Saturation - - Inhaled Oxygen Concentration - - Weight 98.4 kg (217 lb) 08/07/2024 1:36 PM EST Height - - Body Mass Index - - Plan of Treatment Upcoming Encounters Date Type Department Care Team (Late st Contact Info) Description 09/14/2025 11:30 AM EST Office Visit [facility] [address] [place] [address] [place] [address] Linda Nickerson MD [address] [facility], [address] [place] [address] [email or web address] Health Maintenance Due Date Last Done Comments Adult Td,Tdap Booster 1985 TSH LEVEL 1986 DEPRESSION SCREENING 1998 HEPATITIS C SCREENING 2004 HIV ONE-TIME SCREENING (18-6 5 YEARS) 2004 INFLUENZA VACCINE (#1) 2025 COVID-19 VACCINE (2 - 2024-2 6 season) 2025 09/02/2024 PAP SMEAR 12/01/2027 11/30/2022, 12/31/2017, 12/31/2017 PNEUMOCOCCAL VACCINES (0-49 years) Aged Out 05/08/2010 No longer eligible b ased on patient's age to complete this topic SMOKING STATUS SCREENING (On ce After 26 Yrs) Completed 08/07/2024 HEPATITIS A VACCINES Aged Out No long er eligible based on patient's age to complete this topic HIB VACCINES Aged Out No longer eligi ble based on patient's age to complete this topic MENINGOCOCCAL VACCINES (ACWY) Aged Out No longer eligible based on patient's age to complete this topic MENINGOCOCCAL VACCINES (B) Aged Out N o longer eligible based on patient's age to complete this topic Medical Devices Not on file Procedures Procedure Name Priority Date/Time Associated Diagnosis Comments PAP TEST Routine 11/30/2022 12:00 AM EDT from Last 3 Months or Most Recently Relevant to Health Maintenance Results * Pap Test (11/30/2022 12:00 AM EDT) 11/30/2022 12/03/2022 9:3 7 AM EDT Narrative SEE NARRATIVE - 12/05/2022 1:15 PM EDT [address] [address] [employer] Superintendent: Latanya Bonilla MD COMPUTER OPERATIONS ANALYST Cytology Report FINAL DIAGNOSIS A. PAP SMEAR (SUREPATH) CE: SPECIMEN ADEQUACY: Satisfactory for evaluation; transformation zone present. INTERPRETATION: NEGATIVE FOR INTRAEPITHELIAL LESION OR MALIGNANCY. Electronically Signed Out By: RONAL Crook(ASCP) The Pap test is a screening test primarily for squamous cancers and precursors and has associated false-negative and false-positive results. New technologies such as liquid-based preparations may decrease but will not eliminate all false-negative results. Regular sampling and follow-up of unexplained clinical signs and symptoms are recommended to minimize false negative results. PROCEDURES/ADDENDA HPV Testing (Requested) Ordered Date: 12/03/2022 A. PAP SMEAR (SUREPATH) CE: Human Papilloma Virus Test NEGATIVE for high-risk Human Papilloma Virus types 16, 18, 45 and the Other high risk probe set (Includes 31, 33, 35, 39, 51, 52, 56, 58, 59, 66, 68) Note: Testing performed by [facility] HR-HPV analysis. Clinical correlation is advised. This HPV test was performed at [facility], [address] [place] [address]. This test has been FDA approved for SurePath cervical cytology specimens. The accuracy and precision of this test for all other specimen sources has been verified in the Cytopathology Laboratory of the [facility] and has not been cleared or approved by the U.S. Food and Drug Administration. Clinical correlation is advised. CLINICAL HISTORY Date of Last Menstrual Period: Not Provided Menstrual History: Unknown Other Clinical Conditions: Screening Pap SPECIMEN SOURCE A: PAP SMEAR (SUREPATH) CE Patient Name: DANIELLE SOTOMAYOR : 1985 (Age: 37) Sex: F Institution: [facility] Location: [facility] Date of Collection: 11/30/2022 Date of Reported: 12/05/2022 13:15 Results to: Linda Forrester us Linda Nickerson MD CYTOLOGY ORDER WILFRIDO Final Result SEE NARRATIVE from Last 3 Months or Most Recently Relevant to Health Maintenance Insurance MEDICARE PART A & B [place] [id number] [place], [place] [address]HEALTH MEDICARE PART A & B Member Subscriber Plan / Payer (Ef fective 2012-Present) Name:Danielle Sotomayor Member ID:[id number] Relation to Subscriber:Self Name:BranDanielle Subscriber ID:[id number] Payer ID:[id number] Group ID:Not on file Type:Medicare Address: [employer] [address] [place] [address] [place] B Member Subscriber Plan / Payer (Ef fective 2012-Present) Name:Danielle Sotomayor Member ID:[id number] Relation to Subscriber:Self Name:Lisa Sotomayorka Subscriber ID:[id number] Payer ID:[id number] Group ID:Not on file Type:Medicare Address: [employer] [address] [place] [address] [place] B Member Subscriber Plan / Payer (Ef fective 2012-Present) Name:Danielle oStomayor Member ID:[id number] Relation to Subscriber:Self Name:Danielle Sotomayor Subscriber ID:[id number] Payer ID:[id number] Group ID:Not on file Type:Medicare Address: [employer] [address] [place] [address] [employer] MED[employer] PART A & B Member Subscriber Plan / Payer (Ef fective 2012-Present) Name:Danielle Sotomayor Member ID:[id number] Relation to Subscriber:Self Name:Danielle Sotomayor Subscriber ID:[id number] Payer ID:[id number] Group ID:Not on file Type:Medicare Address: [employer] [address] [place] [address] [place] B Member Subscriber Plan / Payer (Ef fective 2012-Present) Name:Danielle Sotomayor Member ID:[id number] Relation to Subscriber:Self Name:Danielle Sotomayor Subscriber ID:[id number] Payer ID:[id number] Group ID:Not on file Type:Medicare Address: [employer] [address] [place] [address] MEDICARE PART A & B Member Subscriber Plan / Payer (Ef fective 2012-Present) Name:Danielle Sotomayor Member ID:[id number] Relation to Subscriber:Self Name:Danielle Sotomayor Subscriber ID:[id number] Payer ID:[id number] Group ID:Not on file Type:Medicare Address: [employer] [address] [place], [place] [id number] [place] A & B [facility] Care Teams Boarding House Manager Relationship Specialty Start Date End Date Acosta Monteolngo DO [address] [place] [address] PCP - General Internal Medicine 10/22/17 Additional Source Comments The information contained in this document represents components of the legal health record. It is not the complete legal health record.[facility]
--- OUTSIDE RECORDS SUMMARY | 2025-09-01 12:48 | XMS_ITS | Clinical Summary ---
Author Organization [address] [facility] Address [address] [place] [address] Phone Care Team Providers Care House Mother Name Role Phone Acosta Montelongo MD Primary Care Provider [phone] Encounters Date Type Department Care Team Description 08/26/2025 Lab Requisition [facility] Lab [address] [place] [address] Acosta Montelongo MD Disorder of urea cycle metabolism, unspecified ([facility] V24); Encounter for other specified special examinations 08/25/2025 Lab Requisition [facility] Lab [address] [place] [address] Acosta Montelongo MD Type 1 diabetes mellitus with ketoacidosis with coma (CMS/[facility] V24, CMS/[facility] V28); Encounter for other specified special examinations from Last 3 Months Social History Tobacco Use Types Packs/Day Years Used Date Smoking Tobacco: Never Assessed Comments Unknown Sex and Gender Information Value Date Recorded Sex Assigned at Not on file Legal Sex Female 5:42 AM EST Gender Identity Not on file Sexual Orientation Not on file Plan of Treatment Health Maintenance Due Date Last Done Comments Diabetes: Annual Foot Exam 1996 Diabetes: Annual Retina Eye Exam 1996 DTaP,Tdap,and Td Vaccines (1 - Tdap) 2005 Hepatitis B Vaccines (1 of 3 - 19+ 3-dose series) 2005 Cervical Cancer Screening: Pap Smear 2007 Pneumococcal Vaccine: Pediatrics (0 to 5 Years) and At-Risk Patients (6 to 49 Years) (2 of 2 - PCV) 05/08/2011 05/08/2010 HPV Vaccines (1 - 3-dose SCDM series) 2013 HIV Screening 08/19/2022 Hepatitis C Screening 08/19/2022 Medicare Annual Wellness Visit 08/19/2022 Social Influencers of Health Screening 08/19/2022 Depression Screening 09/16/2024 Diabetes: Annual Urine Albumin-Creatinine Ratio (uACR) 11/23/2024 COVID-19 Vaccine ( season) 2025 Influenza Vaccine (#1) 2025 Diabetes: Blood Sugar Control Test (HGBA1C) 02/23/2026 08/25/2025, 05/26/2025, 02/23/2025, Additional history exists Diabetes: Annual GFR (Glomerular Filtration Rate) 08/26/2026 08/26/2025, 05/26/2025, 02/23/2025, Additional history exists Cholesterol Screening (Lipid Panel) 05/26/2030 05/26/2025, 01/20/2025, 11/23/2024, Additional history exists RSV Immunization Adult Patients (1 - 1-dose 75+ series) 2061 HIB Vaccines Aged Out No longer eligi ble based on patient's age to complete this topic Hepatitis A Vaccines Aged Out No long er eligible based on patient's age to complete this topic IPV Vaccines Aged Out No longer eligi ble based on patient's age to complete this topic MMR Vaccines Aged Out No longer eligi ble based on patient's age to complete this topic Meningococcal ACWY Vaccine Aged Out N o longer eligible based on patient's age to complete this topic Meningococcal B Vaccine Aged Out No l onger eligible based on patient's age to complete this topic RSV Immunization Patients Under 20 months Aged Out No longer eligible based on patient's age to complete this topic Varicella Vaccines Aged Out No longer eligible based on patient's age to complete this topic Procedures Procedure Name Priority Date/Time Associated Diagnosis Comments AMMONIA Routine 08/26/2025 7:17 AM EST Disorder of urea cycle metabolism, unspecified ([facility] V24) Encounter for other specified special examinations COMPREHENSIVE METABOLIC PANEL Routine 08/26/2025 7:17 AM EST Disorder of urea cycle metabolism, unspecified ([facility] V24) Encounter for other specified special examinations HEMOGLOBIN A1C Routine 08/25/2025 7:12 AM EST Type 1 diabetes mellitus with ketoacidosis with coma ([facility] V24, [facility] V28) Encounter for other specified special examinations LIPID PANEL WITH REFLEX TO DIRECT LDL Routine 05/26/2025 7:02 AM EDT Anoxic brain damage, not elsewhere classified ([facility] V24, [facility] V28) Hypothyroidism, unspecified Pure hypercholesterolemia, unspecified Type 1 diabetes mellitus without complications ([facility] V24, [facility] V28) from Last 3 Months or Most Recently Relevant to Health Maintenance Results * (ABNORMAL) Ammonia (08/26/2025 7:17 AM EST) Pathologist [facility] Ammonia 45(H) 11 - 35 mcmol/L 08/26/2025 8:16 AM [facility] Blood Venous blood specimen / Unknown 08/26/2025 7:17 AM EST 08/26/2025 7:52 AM EST Acosta Montelongo MD LAB BLOOD ORDERABLES Final Resul t [facility] [address] [place] [address], [place] [phone] * (ABNORMAL) Comprehensive metabolic panel (08/26/2025 7:17 AM EST) Pathologist [facility] Sodium 140 133 - 145 mmol/L 08/26/2025 [...] 10 - 60 unit/L 08/26/2025 8:22 AM [facility] Alkaline Phosphatase 92 42 - 121 [...] Resul t [facility] [address] [place] [address], [place] [phone] * (ABNORMAL) Hemoglobin A1c (08/25/2025 7:12 AM EST) Hemoglobin A1C 9.2(H) <6.5 % LAB CHEMISTRY METHOD 08/27/2025 8:34 AM EST [facility] Mean Bld Glu Estim. 217 mg/dL LAB CHEMISTRY METHOD 08/27/2025 8:34 AM EST [facility] Blood Venous blood specimen / Unknown 08/25/2025 7:12 AM EST 08/25/2025 2:04 PM EST us Acosta Montelongo MD LAB BLOOD ORDERABLES Final Resul t [facility] [address] [place] [address], [place] [phone] * (ABNORMAL) Lipid panel with reflex to direct LDL (05/26/2025 7:02 AM EDT) Cholesterol 114 0 - 200 mg/dL LAB CHEMISTRY METHOD 05/26/2025 9:01 AM [facility] Triglycerides 38 0 - 150 mg/dL LAB CHEMISTRY METHOD 05/26/2025 9:01 AM [facility] HDL 37(L) >=40 mg/dL LAB CHEMISTRY METHOD 05/26/2025 9:01 AM [facility] LDL Calculated 69 0 - 100 mg/dL LAB CHEMISTRY METHOD 05/26/2025 9:01 AM [facility] Comment:Estimated LDL Calcul ated using equation: Total cholesterol - HDL cholesterol - (Triglycerides/5) VLDL Cholesterol Diego 7.6 mg/dL LAB CHEMISTRY METHOD 05/26/2025 9:01 AM [facility] Non HDL Chol. (LDL+VLDL) 77 <145 mg/dL LAB CHEMISTRY METHOD 05/26/2025 9:01 AM [facility] Chol/HDL Ratio 3.1 0.0 - 4.4 LAB CHEMISTRY METHOD 05/26/2025 9:01 AM EDT [facility] Blood Venous blood specimen / Unknown 05/26/2025 7:02 AM EDT 05/26/2025 7:31 AM EDT us Acosta Montelongo MD LAB BLOOD ORDERABLES Final Resul t [facility] ([facility]) [facility] [address] [place] [address], [place] [phone] from Last 3 Months or Most Recently Relevant to Health Maintenance Insurance [place] - [place] MEDICARE Care Teams House Mother Relationship Specialty Start Date End Date Acosta Montelongo MD [address] [place] [address] [address] [place], [place] PCP - General Internal Medicine 10/26/24
--- OUTSIDE RECORDS SUMMARY | 2025-09-01 12:48 | XMS_ITS | Encounter Summary ---
Author Organization [facility] Address [address] [place] [address] Care Team Providers Care Employment Security Officer Name Role Phone Acosta Montelongo MD Primary Care Provider [phone] Encounter Details Date Type Department Care Team (Late st Contact Info) Description 08/25/2025 Lab Requisition [facility] Lab [address] [facility] [place] [address] Acosta Montelongo MD [address] [place] [address] [address] [place], [place] Type 1 diabetes mellitus with ketoacidosis with coma (CMS/[facility] V24, [facility] V28); Encounter for other specified special examinations Social [...] Procedure Name Priority Date/Time Associated Diagnosis Comments HEMOGLOBIN A1C Routine 08/25/2025 7:12 AM EST Type 1 diabetes mellitus with ketoacidosis with coma (CMS/HCC V24, CMS/[facility] V28) Encounter for other specified special examinations documented in this encounter Results * (ABNORMAL) Hemoglobin A1c (08/25/2025 7:12 AM EST) Hemoglobin A1C 9.2(H) <6.5 % LAB CHEMISTRY METHOD 08/27/2025 8:34 AM EST [facility] Mean Bld Glu Estim. 217 mg/dL LAB CHEMISTRY METHOD 08/27/2025 8:34 AM EST [facility] Blood Venous blood specimen / Unknown 08/25/2025 7:12 AM EST 08/25/2025 2:04 PM EST us Acosta Montelongo MD LAB BLOOD ORDERABLES Final Resul t [facility] [address] [place] [address], documented in this encounter Visit Diagnoses Diagnosis Type 1 diabetes mellitus with ketoacidosis with coma (CMS/HCC V24, CMS/[facility] V28) Encounter for other specified special examinations documented in this encounter Care Teams Employment Security Officer Relationship Specialty Start Date End Date Acosta Montelongo MD [address] [place] [address] Dr [address] [place], [place] PCP - General Internal Medicine 10/26/24 documented as of this encounter
--- OUTSIDE RECORDS SUMMARY | 2025-09-01 12:48 | XMS_ITS | Encounter Summary ---
Author Organization [facility] Address [address] [place] [address] Care Team Providers Care Shipboard Intelligence Analyst Name Role Phone Acosta Montelongo MD Primary Care Provider [phone] Encounter Details Date Type Department Care Team (Late st Contact Info) Description 02/23/2025 Lab Requisition [facility] - Main Lab [address] [facility] [place] [address] Acosta Montelongo MD [address] [place] [address] [address] [place], [place] Encounter for other specified special examinations; Disorder of urea cycle metabolism, unspecified (CMS/HCC V24); Type 1 diabetes mellitus with ketoacidosis with [...] Date/Time Associated Diagnosis Comments HEMOGLOBIN A1C Routine 02/23/2025 6:54 AM EDT Encounter for other specified special examinations Disorder of urea cycle metabolism, unspecified (CMS/HCC V24) Type 1 diabetes mellitus with ketoacidosis with coma (CMS/HCC V24, CMS/HCC V28) AMMONIA Routine 02/23/2025 6:54 AM EDT Encounter for other specified special examinations Disorder of urea cycle metabolism, unspecified (CMS/HCC V24) Type 1 diabetes mellitus with ketoacidosis with coma (CMS/HCC V24, CMS/HCC V28) COMPREHENSIVE METABOLIC PANEL Routine 02/23/2025 6:54 AM EDT Encounter for other specified special examinations Disorder of urea cycle metabolism, unspecified (CMS/HCC V24) Type 1 diabetes mellitus with ketoacidosis with coma ([facility] V24, [facility] V28) documented in this encounter Results * (ABNORMAL) Ammonia (02/23/2025 6:54 AM EDT) Pathologist [facility] Ammonia 51(H) 11 - 35 mcmol/L LAB CHEMISTRY METHOD 02/23/2025 8:30 AM EDT [facility] Blood Venous blood specimen / Unknown 02/23/2025 6:54 AM EDT 02/23/2025 7:25 AM EDT us Acosta Montelongo MD LAB BLOOD ORDERABLES Final Resul t Performing Organization Address [facility] Co de Phone Number [facility] [address] [place] [address], [place] [phone] * (ABNORMAL) Hemoglobin A1c (02/23/2025 6:54 AM EDT) [facility] Hemoglobin A1C 9.4(H) <6.5 % LAB CHEMISTRY METHOD 02/23/2025 10:56 AM EDT [facility] Mean Bld Glu Estim. 223 mg/dL LAB CHEMISTRY METHOD 02/23/2025 10:56 AM EDT [facility] Blood Venous blood specimen / Unknown 02/23/2025 6:54 AM EDT 02/23/2025 7:25 AM EDT us Acosta Montelongo MD LAB BLOOD ORDERABLES Final Resul t Performing Organization Address [facility]/ZIP Co de Phone Number [facility] [address] [place] [address], [place] [phone] * (ABNORMAL) Comprehensive metabolic panel (02/23/2025 6:54 AM EDT) Pathologist [facility] Sodium 137 133 - 145 mmol/L LAB CHEMISTRY METHOD 02/23/2025 8:30 AM EDT [facility] Potassium 4.5 3.5 - 5.5 mmol/L LAB CHEMISTRY METHOD 02/23/2025 8:[address] [facility] Chloride 108 96 - 110 mmol/L LAB CHEMISTRY METHOD 02/23/2025 8:[address] [facility] CO2 24 21 - 32 mmol/L LAB CHEMISTRY METHOD 02/23/2025 8:[address] [facility] Anion Gap 5 3 - 11 LAB CHEMISTRY METHOD 02/23/2025 8:[address] [facility] Glucose 279(H) 70 - 100 mg/dL LAB CHEMISTRY METHOD 02/23/2025 8:[address] [facility] BUN 12 5 - 25 mg/dL LAB CHEMISTRY METHOD 02/23/2025 8:[address] [facility] Creatinine 1.18(H) 0.50 - 1.10 mg/dL LAB CHEMISTRY METHOD 02/23/2025 8:[address] [facility] eGFR 61 >=60 mL/min/1. 73m2 LAB CHEMISTRY METHOD 02/23/2025 8:[address] [facility] Comment:Calculation based on the Chronic Kidney Disease Epidemiology Collaboration (CKD-EPI) equation refit without adjustment for race. BUN/Creatinine Ratio 10.2 LAB CHEMISTRY METHOD 02/23/2025 8:[address] [facility] Calcium 8.5 8.5 - 10.5 mg/dL LAB CHEMISTRY METHOD 02/23/2025 8:[address] [facility] AST (SGOT) 19 10 - 42 unit/L LAB CHEMISTRY METHOD 02/23/2025 8:[address] [facility] ALT (SGPT) 22 10 - 60 unit/L LAB CHEMISTRY METHOD 02/23/2025 8:[address] [facility] Alkaline Phosphatase 84 42 - 121 unit/L LAB CHEMISTRY METHOD 02/23/2025 8:[address] [facility] Total Protein 6.7 6.0 - 8.0 g/dL LAB CHEMISTRY METHOD 02/23/2025 8:30 AM EDT [facility] Albumin 3.4 3.2 - 5.0 g/dL LAB CHEMISTRY METHOD 02/23/2025 8:30 AM EDT [facility] Total Bilirubin 0.5 0.0 - 1.4 mg/dL LAB CHEMISTRY METHOD 02/23/2025 8:30 AM EDT [facility] Blood Venous blood specimen / Unknown 02/23/2025 6:54 AM EDT 02/23/2025 7:25 AM EDT us Acosta Montelongo MD LAB BLOOD ORDERABLES Final Resul t [facility] [address] [place] [address], documented in this encounter Visit Diagnoses Diagnosis Encounter for other specified special examinations Disorder of urea cycle metabolism, unspecified (CMS/HCC V24) Type 1 diabetes mellitus with ketoacidosis with coma (CMS/HCC V24, CMS/HCC V28) documented in this encounter Care Teams Shipboard Intelligence Analyst Relationship Specialty Start Date End Date Acosta Montelongo MD [address] [place] [address] [address] [place], [place] PCP - General Internal Medicine 10/26/24 documented as of this encounter
--- OUTSIDE RECORDS SUMMARY | 2025-09-01 12:48 | XMS_ITS | Encounter Summary ---
Author Organization [employer] Address [address] [place] [address] Care Team Providers Care Gate Operator Name Role Phone Acosta Montelongo MD Primary Care Provider [phone] Encounter Details Date Type Department Care Team (Late st Contact Info) Description 08/24/2024 Lab Requisition [facility] - Main Lab [address] [facility] [place] [address] Acosta Montelongo MD [address] [place] [address] [address] [place], [place] Other nursing home (current) drug therapy; Anoxic brain damage, not elsewhere classified (CMS/HCC V24, CMS/HCC V28) Social History Tobacco [...] Date/Time Associated Diagnosis Comments HEMOGLOBIN A1C Routine 08/24/2024 7:00 AM EST Other nursing home (current) drug therapy Anoxic brain damage, not elsewhere classified (CMS/HCC) AMMONIA Routine 08/24/2024 7:00 AM EST Other nursing home (current) drug therapy Anoxic brain damage, not elsewhere classified (CMS/HCC) COMPREHENSIVE METABOLIC PANEL Routine 08/24/2024 7:00 AM EST Other nursing home (current) drug therapy Anoxic brain damage, not elsewhere classified (CMS/HCC) documented in this encounter Results * (ABNORMAL) Ammonia (08/24/2024 7:00 AM EST) Ammonia 60(H) 11 - 35 mcmol/L LAB CHEMISTRY METHOD 08/24/2024 9:13 AM EST [facility] Blood Venous blood specimen / Unknown 08/24/2024 7:00 AM EST 08/24/2024 8:02 AM EST us Acosta Montelongo MD LAB BLOOD ORDERABLES Final Resul t Performing Organization Address [facility]/ZIP Co de Phone Number [facility] [address] [place] [address], [place] [phone] * (ABNORMAL) Hemoglobin A1c (08/24/2024 7:00 AM EST) Hemoglobin A1C 9.6(H) <6.5 % LAB CHEMISTRY METHOD 08/24/2024 10:58 AM [facility] Mean Bld Glu Estim. 229 mg/dL LAB CHEMISTRY METHOD 08/24/2024 10:58 AM [facility] Blood Venous blood specimen / Unknown 08/24/2024 7:00 AM EST 08/24/2024 8:02 AM EST us Acosta Montelongo MD LAB BLOOD ORDERABLES Final Resul t Performing Organization Address [facility]/ZIP Co de Phone Number [facility] [address] [place] [address], [place] [phone] * (ABNORMAL) Comprehensive metabolic panel (08/24/2024 7:00 AM EST) Sodium 134 133 - 145 mmol/L LAB CHEMISTRY METHOD 08/24/2024 6:02 PM [facility] Potassium 4.6 3.5 - 5.5 mmol/L LAB CHEMISTRY METHOD 08/24/2024 6:02 PM [facility] Comment:Hemolysis present Chloride 105 96 - 110 mmol/L LAB CHEMISTRY METHOD 08/24/2024 6:02 PM [facility] CO2 23 21 - 32 mmol/L LAB CHEMISTRY METHOD 08/24/2024 6:02 PM [facility] Anion Gap 6 3 - 11 LAB CHEMISTRY METHOD 08/24/2024 6:02 PM [facility] Glucose 136(H) 70 - 100 mg/dL LAB CHEMISTRY METHOD 08/24/2024 6:02 PM [facility] BUN 8 5 - 25 mg/dL LAB CHEMISTRY METHOD 08/24/2024 6:02 PM [facility] Creatinine 0.88 0.50 - 1.10 mg/dL LAB CHEMISTRY METHOD 08/24/2024 6:02 PM [facility] eGFR 86 >=60 mL/min/1. 73m2 LAB CHEMISTRY METHOD 08/24/2024 6:02 PM [facility] Comment:Calculation based on the Chronic Kidney Disease Epidemiology Collaboration (CKD-EPI) equation refit without adjustment for race. BUN/Creatinine Ratio 9.1 LAB CHEMISTRY METHOD 08/24/2024 6:02 PM [facility] Calcium 8.7 8.5 - 10.5 mg/dL LAB CHEMISTRY METHOD 08/24/2024 6:02 PM [facility] AST (SGOT) 21 10 - 42 unit/L LAB CHEMISTRY METHOD 08/24/2024 6:02 PM [facility] Comment:Hemolysis present ALT (SGPT) 20 10 - 60 unit/L LAB CHEMISTRY METHOD 08/24/2024 6:02 PM [facility] Alkaline Phosphatase 78 42 - 121 unit/L LAB CHEMISTRY METHOD 08/24/2024 6:02 PM [facility] Total Protein 6.4 6.0 - 8.0 g/dL LAB CHEMISTRY METHOD 08/24/2024 6:02 PM [facility] Albumin 3.0(L) 3.2 - 5.0 g/dL LAB CHEMISTRY METHOD 08/24/2024 6:02 PM [facility] Total Bilirubin 0.6 0.0 - 1.4 mg/dL LAB CHEMISTRY METHOD 08/24/2024 6:02 PM EST [facility] Blood Venous blood specimen / Unknown 08/24/2024 7:00 AM EST 08/24/2024 8:02 AM EST us Acosta Montelongo MD LAB BLOOD ORDERABLES Edited Resu lt - Final [facility] [address] [place] [address], documented in this encounter Visit Diagnoses Diagnosis Other nursing home (current) drug therapy Anoxic brain damage, not elsewhere classified (CMS/HCC V24, CMS/HCC V28) documented in this encounter Care Teams Gate Operator Relationship Specialty Start Date End Date Acosta Montelongo MD [address] [place] [address] Dr [address] [place] PCP - General Internal Medicine 10/26/24 documented as of this encounter
--- OUTSIDE RECORDS SUMMARY | 2025-09-01 12:48 | XMS_ITS | Encounter Summary ---
Author Organization [facility] Address [address] [place] [address] Care Team Providers Care 3Rd Mate Name Role Phone Acosta Montelongo MD Primary Care Provider [phone] Encounter Details Date Type Department Care Team (Late st Contact Info) Description 08/12/2024 Lab Requisition [facility] - Main Lab [address] [place] [address] Acosta Montelongo MD [address] [place] [address] [address] [place], [place] Other residential (current) drug therapy Social History Tobacco Use [...] Procedure Name Priority Date/Time Associated Diagnosis Comments CBC WITH AUTO DIFFERENTIAL Routine 08/12/2024 7:10 AM EST Other residential (current) drug therapy CBC AND DIFFERENTIAL Routine 08/12/2024 7:10 AM EST Other residential (current) drug therapy THYROID STIMULATING HORMONE Routine 08/12/2024 7:10 AM EST 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 documented in this encounter Results * (ABNORMAL) CBC auto differential (08/12/2024 7:10 AM EST) WBC 13.4(H) 4.8 - 10.8 K/[facility] LAB HEMETOLOGY METHOD 08/12/2024 8:06 AM EST [facility] RBC 4.50 3.80 - 4.80 M/[facility] LAB HEMETOLOGY METHOD 08/12/2024 8:06 AM [facility] Hemoglobin 13.3 11.5 - 16.0 g/dL LAB HEMETOLOGY METHOD 08/12/2024 8:06 AM [facility] Hematocrit 41.7 35.0 - 47.0 % LAB HEMETOLOGY METHOD 08/12/2024 8:06 AM [facility] MCV 92.1 79.0 - 98.0 FL LAB HEMETOLOGY METHOD 08/12/2024 8:06 AM [facility] MCH 29.4 27.0 - 32.0 pcg LAB HEMETOLOGY METHOD 08/12/2024 8:06 AM [facility] MCHC 31.9(L) 32.0 - 37.0 g/dL LAB HEMETOLOGY METHOD 08/12/2024 8:06 AM [facility] RDW 14.3 11.0 - 15.0 % LAB HEMETOLOGY METHOD 08/12/2024 8:06 AM [facility] Platelets 224 130 - 400 K/mcL LAB HEMETOLOGY METHOD 08/12/2024 8:06 AM [facility] MPV 12.0(H) 7.0 - 11.0 FL LAB HEMETOLOGY METHOD 08/12/2024 8:06 AM [facility] NRBC 0.0 <1.0 % LAB HEMETOLOGY METHOD 08/12/2024 8:06 AM [facility] NRBC Absolute 0.00 <0.10 K/mcL LAB HEMETOLOGY METHOD 08/12/2024 8:06 AM [facility] Neutrophils Relative 77.4 % LAB HEMETOLOGY METHOD 08/12/2024 8:06 AM [facility] Lymphocytes Relative 14.7 % LAB HEMETOLOGY METHOD 08/12/2024 8:06 AM [facility] Monocytes Relative 5.9 % LAB HEMETOLOGY METHOD 08/12/2024 8:06 AM [facility] Eosinophils Relative 1.3 % LAB HEMETOLOGY METHOD 08/12/2024 8:06 AM [facility] Basophils Relative 0.3 % LAB HEMETOLOGY METHOD 08/12/2024 8:06 AM [facility] Immature Granulocytes Relative 0.4 % LAB HEMETOLOGY METHOD 08/12/2024 8:06 AM [facility] Neutrophils Absolute 10.40(H) 1.50 - 7.00 K/mcL LAB HEMETOLOGY METHOD 08/12/2024 8:06 AM [facility] Lymphocytes Absolute 1.98 1.00 - 5.00 K/mcL LAB HEMETOLOGY METHOD 08/12/2024 8:06 AM [facility] Monocytes Absolute 0.79 0.20 - 1.00 K/mcL LAB HEMETOLOGY METHOD 08/12/2024 8:06 AM EST [facility] Eosinophils Absolute 0.17 0.00 - 0.50 K/mcL LAB HEMETOLOGY METHOD 08/12/2024 8:06 AM [facility] Basophils Absolute 0.04 0.00 - 0.20 K/mcL LAB HEMETOLOGY METHOD 08/12/2024 8:06 AM [facility] Immature Granulocytes Absolute 0.05(H) 0.00 - 0.03 K/mcL LAB HEMETOLOGY METHOD 08/12/2024 8:06 AM [facility] Blood Venous blood specimen / Unknown 08/12/2024 7:10 AM EST 08/12/2024 7:54 AM EST us Acosta Montelongo MD LAB BLOOD ORDERABLES Final Resul t [facility] [address] [place] [address], * Thyroid stimulating hormone (08/12/2024 7:10 AM EST) TSH 0.57 0.40 - 4.00 mcIU/mL LAB CHEMISTRY METHOD 08/12/2024 8:28 AM EST [facility] Blood Venous blood specimen / Unknown 08/12/2024 7:10 AM EST 08/12/2024 7:54 AM EST us Acosta Montelongo MD LAB BLOOD ORDERABLES Final Resul t [facility] [address] [place] [address], documented in this encounter Visit Diagnoses Diagnosis Other residential (current) drug therapy documented in this encounter Care Teams 3Rd Mate Relationship Specialty Start Date End Date Acosta Montelongo MD [address] [place] [address] [address] [place], [place] PCP - General Internal Medicine 10/26/24 documented as of this encounter
--- OUTSIDE RECORDS SUMMARY | 2025-09-01 12:48 | XMS_ITS | Encounter Summary ---
Author Organization [facility] Address [address] [place] [address] Care Team Providers Care Heat Treatment Technician Name Role Phone Acosta Montelongo MD Primary Care Provider [phone] Encounter Details Date Type Department Care Team (Late st Contact Info) Description 05/26/[address] [facility] - Main Lab [address] [facility] [employer] [place] [address] Acosta Montelongo MD [address] [place] [address] Dr [address] [place], [place] Anoxic brain damage, not elsewhere classified (CMS/HCC V24, CMS/[facility] V28); Hypothyroidism, unspecified; Pure hypercholesterolemia, unspecified; Type 1 diabetes mellitus without complications (CMS/HCC V24, CMS/[facility] V28) Social History Tobacco Use Types Packs/Day Years Used Date Smoking Tobacco: Never Assessed Comments Unknown Sex and Gender Information Value Date Recorded Sex Assigned at Not on file Legal Sex Female 5:42 AM EST Gender Identity Not on file Sexual Orientation Not on file documented as of this encounter Plan of Treatment Pending Results Name Type Priority Associated Diagnoses Date /Time Lavender tube Lab Routine Anoxic brain damage, not elsewhere classified (CMS/HCC V24, CMS/[facility] V28) Hypothyroidism, unspecified Pure hypercholesterolemia, unspecified Type 1 diabetes mellitus without complications (CMS/HCC V24, CMS/[facility] V28) 05/26/2025 7:02 AM EDT documented as of this encounter Procedures Procedure Name Priority Date/Time Associated Diagnosis Comments LIPID PANEL WITH REFLEX TO DIRECT LDL Routine 05/26/2025 7:02 AM EDT Anoxic brain damage, not elsewhere classified (CMS/HCC V24, CMS/[facility] V28) Hypothyroidism, unspecified Pure hypercholesterolemia, unspecified Type 1 diabetes mellitus without complications (CMS/HCC V24, CMS/[facility] V28) CBC WITH AUTO DIFFERENTIAL Routine 05/26/2025 7:02 AM EDT Anoxic brain damage, not elsewhere classified (CMS/HCC V24, CMS/HCC V28) Hypothyroidism, unspecified Pure hypercholesterolemia, unspecified Type 1 diabetes mellitus without complications (CMS/HCC V24, CMS/HCC V28) CBC AND DIFFERENTIAL Routine 05/26/2025 7:02 AM EDT Anoxic brain damage, not elsewhere classified (CMS/HCC V24, CMS/HCC V28) Hypothyroidism, unspecified Pure hypercholesterolemia, unspecified Type 1 diabetes mellitus without complications (CMS/HCC V24, CMS/HCC V28) THYROID STIMULATING HORMONE Routine 05/26/2025 7:02 AM EDT Anoxic brain damage, not elsewhere classified (CMS/HCC V24, CMS/HCC V28) Hypothyroidism, unspecified Pure hypercholesterolemia, unspecified Type 1 diabetes mellitus without complications (CMS/HCC V24, CMS/HCC V28) THYROXINE FREE Routine 05/26/2025 7:02 AM EDT Anoxic brain damage, not elsewhere classified (CMS/HCC V24, CMS/HCC V28) Hypothyroidism, unspecified Pure hypercholesterolemia, unspecified Type 1 diabetes mellitus without complications (CMS/HCC V24, CMS/HCC V28) HEMOGLOBIN A1C Routine 05/26/2025 7:02 AM EDT Anoxic brain damage, not elsewhere classified (CMS/HCC V24, CMS/HCC V28) Hypothyroidism, unspecified Pure hypercholesterolemia, unspecified Type 1 diabetes mellitus without complications (CMS/HCC V24, CMS/HCC V28) AMMONIA Routine 05/26/2025 7:02 AM EDT Anoxic brain damage, not elsewhere classified (CMS/HCC V24, CMS/HCC V28) Hypothyroidism, unspecified Pure hypercholesterolemia, unspecified Type 1 diabetes mellitus without complications (CMS/HCC V24, CMS/HCC V28) HEPATIC FUNCTION PANEL Routine 05/26/2025 7:02 AM EDT Anoxic brain damage, not elsewhere classified (CMS/HCC V24, CMS/HCC V28) Hypothyroidism, unspecified Pure hypercholesterolemia, unspecified Type 1 diabetes mellitus without complications (CMS/HCC V24, CMS/HCC V28) COMPREHENSIVE METABOLIC PANEL Routine 05/26/2025 7:02 AM EDT Anoxic brain damage, not elsewhere classified ([facility] V24, [facility] V28) Hypothyroidism, unspecified Pure hypercholesterolemia, unspecified Type 1 diabetes mellitus without complications ([facility] V24, [facility] V28) documented in this encounter Results * (ABNORMAL) CBC auto differential (05/26/2025 7:02 AM EDT) [facility] WBC 7.0 4.8 - 10.8 K/mcL LAB HEMETOLOGY METHOD 05/26/2025 8:08 AM [facility] RBC 4.50 3.80 - 4.80 M/mcL LAB HEMETOLOGY METHOD 05/26/2025 8:08 AM [facility] Hemoglobin 13.6 11.5 - 16.0 g/dL LAB HEMETOLOGY METHOD 05/26/2025 8:08 AM [facility] Hematocrit 42.4 35.0 - 47.0 % LAB HEMETOLOGY METHOD 05/26/2025 8:08 AM [facility] MCV 93.6 79.0 - 98.0 FL LAB HEMETOLOGY METHOD 05/26/2025 8:08 AM [facility] MCH 30.0 27.0 - 32.0 pcg LAB HEMETOLOGY METHOD 05/26/2025 8:08 AM [facility] MCHC 32.1 32.0 - 37.0 g/dL LAB HEMETOLOGY METHOD 05/26/2025 8:08 AM [facility] RDW 12.7 11.0 - 15.0 % LAB HEMETOLOGY METHOD 05/26/2025 8:08 AM [facility] Platelets 158 130 - 400 K/mcL LAB HEMETOLOGY METHOD 05/26/2025 8:08 AM [facility] MPV 12.4(H) 7.0 - 11.0 FL LAB HEMETOLOGY METHOD 05/26/2025 8:08 AM [facility] NRBC 0.0 <1.0 % LAB HEMETOLOGY METHOD 05/26/2025 8:08 AM [facility] NRBC Absolute 0.00 <0.10 K/mcL LAB HEMETOLOGY METHOD 05/26/2025 8:08 AM [facility] Neutrophils Relative 57.6 % LAB HEMETOLOGY METHOD 05/26/2025 8:08 AM [facility] Lymphocytes Relative 32.1 % LAB HEMETOLOGY METHOD 05/26/2025 8:08 AM [facility] Monocytes Relative 6.3 % LAB HEMETOLOGY METHOD 05/26/2025 8:08 AM [facility] Eosinophils Relative 3.1 % LAB HEMETOLOGY METHOD 05/26/2025 8:08 AM [facility] Basophils Relative 0.6 % LAB HEMETOLOGY METHOD 05/26/2025 8:08 AM [facility] Immature Granulocytes Relative 0.3 % LAB HEMETOLOGY METHOD 05/26/2025 8:08 AM [facility] Neutrophils Absolute 4.06 1.50 - 7.00 K/mcL LAB HEMETOLOGY METHOD 05/26/2025 8:08 AM [facility] Lymphocytes Absolute 2.26 1.00 - 5.00 K/mcL LAB HEMETOLOGY METHOD 05/26/2025 8:08 AM [facility] Monocytes Absolute 0.44 0.20 - 1.00 K/mcL LAB HEMETOLOGY METHOD 05/26/2025 8:08 AM [facility] Eosinophils Absolute 0.22 0.00 - 0.50 K/mcL LAB HEMETOLOGY METHOD 05/26/2025 8:08 AM EDT [facility] Basophils Absolute 0.04 0.00 - 0.20 K/mcL LAB HEMETOLOGY METHOD 05/26/2025 8:08 AM EDT [facility] Immature Granulocytes Absolute 0.02 0.00 - 0.03 K/[facility] LAB HEMETOLOGY METHOD 05/26/2025 8:08 AM EDT [facility] Blood Venous blood specimen / Unknown 05/26/2025 7:02 AM EDT 05/26/2025 7:31 AM EDT us Acosta Montelongo MD LAB BLOOD ORDERABLES Final Resul t Performing Organization Address City/[facility]/ZIP Co de Phone Number [facility] [address] [place] [address], [place] [phone] * Thyroid stimulating hormone (05/26/2025 7:02 AM EDT) Pathologist [facility] TSH 1.27 0.40 - 4.00 mcIU/mL LAB CHEMISTRY METHOD 05/26/2025 11:28 AM EDT [facility] Blood Venous blood specimen / Unknown 05/26/2025 7:02 AM EDT 05/26/2025 7:31 AM EDT us Acosta Montelongo MD LAB BLOOD ORDERABLES Final Resul t [facility] [address] [place] [address], [place] [phone] * (ABNORMAL) Hemoglobin A1c (05/26/2025 7:02 AM EDT) Hemoglobin A1C 9.2(H) <6.5 % LAB CHEMISTRY METHOD 05/26/2025 2:09 PM EDT [facility] Mean Bld Glu Estim. 217 mg/dL LAB CHEMISTRY METHOD 05/26/2025 2:09 PM EDT [facility] Blood Venous blood specimen / Unknown 05/26/2025 7:02 AM EDT 05/26/2025 7:31 AM EDT us Acosta Montelongo MD LAB BLOOD ORDERABLES Final Resul t Performing Organization Address [facility] de Phone Number [facility] [address] [place] [address], [place] [phone] * Thyroxine free (05/26/2025 7:02 AM EDT) Free T4 1.61 0.70 - 1.80 ng/dL LAB CHEMISTRY METHOD 05/26/2025 11:28 AM EDT [facility] Blood Venous blood specimen / Unknown 05/26/2025 7:02 AM EDT 05/26/2025 7:31 AM EDT us Acosta Montelongo MD LAB BLOOD ORDERABLES Final Resul t Performing Organization Address [facility] de Phone Number [facility] [address] [place] [address], [place] [phone] * (ABNORMAL) Ammonia (05/26/2025 7:02 AM EDT) Pathologist [facility] Ammonia 56(H) 11 - 35 mcmol/L LAB CHEMISTRY METHOD 05/26/2025 8:15 AM EDT [facility] Comment:Hemolysis present Blood Venous blood specimen / Unknown 05/26/2025 7:02 AM EDT 05/26/2025 7:31 AM EDT us Acosta Montelongo MD LAB BLOOD ORDERABLES Final Resul t Performing Organization Address [facility] de Phone Number [facility] [address] [place] [address], [place] [phone] * Hepatic function panel (05/26/2025 7:02 AM EDT) Total Protein 6.6 6.0 - 8.0 g/dL LAB CHEMISTRY METHOD 05/26/2025 9:13 AM [facility] Albumin 3.5 3.2 - 5.0 g/dL LAB CHEMISTRY METHOD 05/26/2025 9:13 AM [facility] Total Bilirubin 0.3 0.0 - 1.4 mg/dL LAB CHEMISTRY METHOD 05/26/2025 9:13 AM [facility] Bilirubin, Direct 0.1 0.0 - 0.3 mg/dL LAB CHEMISTRY METHOD 05/26/2025 9:13 AM [facility] Bilirubin, Indirect 0.2 0.0 - 1.1 mg/dL LAB CHEMISTRY METHOD 05/26/2025 9:13 AM [facility] ALT (SGPT) 21 10 - 60 unit/L LAB CHEMISTRY METHOD 05/26/2025 9:13 AM [facility] AST (SGOT) 12 10 - 42 unit/L LAB CHEMISTRY METHOD 05/26/2025 9:13 AM [facility] Alkaline Phosphatase 77 42 - 121 unit/L LAB CHEMISTRY METHOD 05/26/2025 9:13 AM [facility] Blood Venous blood specimen / Unknown 05/26/2025 7:02 AM EDT 05/26/2025 7:31 AM EDT us Acosta Montelongo MD LAB BLOOD ORDERABLES Final Resul t [facility] [address] [place] [address], * (ABNORMAL) Lipid panel with reflex to direct LDL (05/26/2025 7:02 AM EDT) Cholesterol 114 0 - 200 mg/dL LAB CHEMISTRY METHOD 05/26/2025 9:01 AM [facility] Triglycerides 38 0 - 150 mg/dL LAB CHEMISTRY METHOD 05/26/2025 9:01 AM [facility] HDL 37(L) >=40 mg/dL LAB CHEMISTRY METHOD 05/26/2025 9:01 AM [facility] LDL Calculated 69 0 - 100 mg/dL LAB CHEMISTRY METHOD 05/26/2025 9:01 AM [facility] Comment:Estimated LDL Calcul ated using equation: Total cholesterol - HDL cholesterol - (Triglycerides/5) VLDL Cholesterol Diego 7.6 mg/dL LAB CHEMISTRY METHOD 05/26/2025 9:01 AM [facility] Non HDL Chol. (LDL+VLDL) 77 <145 mg/dL LAB CHEMISTRY METHOD 05/26/2025 9:01 AM [facility] Chol/HDL Ratio 3.1 0.0 - 4.4 LAB CHEMISTRY METHOD 05/26/2025 9:01 AM [facility] Blood Venous blood specimen / Unknown 05/26/2025 7:02 AM EDT 05/26/2025 7:31 AM EDT us Acosta Montelongo MD LAB BLOOD ORDERABLES Final Resul t [facility] [address] [place] [address], [place] [phone] * (ABNORMAL) Comprehensive metabolic panel (05/26/2025 7:02 AM EDT) Sodium 142 133 - 145 mmol/L LAB CHEMISTRY METHOD 05/26/2025 9:01 AM [facility] Potassium 4.0 3.5 - 5.5 mmol/L LAB CHEMISTRY METHOD 05/26/2025 9:01 AM [facility] Chloride 115(H) 96 - 110 mmol/L LAB CHEMISTRY METHOD 05/26/2025 9:01 AM [facility] CO2 22 21 - 32 mmol/L LAB CHEMISTRY METHOD 05/26/2025 9:01 AM [facility] Anion Gap 5 3 - 11 LAB CHEMISTRY METHOD 05/26/2025 9:01 AM [facility] Glucose 53(L) 70 - 100 mg/dL LAB CHEMISTRY METHOD 05/26/2025 9:01 AM [facility] Comment:Results verified by repeat testing BUN 10 5 - 25 mg/dL LAB CHEMISTRY METHOD 05/26/2025 9:01 AM [facility] Creatinine 1.07 0.50 - 1.10 mg/dL LAB CHEMISTRY METHOD 05/26/2025 9:01 AM [facility] eGFR 68 >=60 mL/min/1. 73m2 LAB CHEMISTRY METHOD 05/26/2025 9:01 AM [facility] Comment:Calculation based on the Chronic Kidney Disease Epidemiology Collaboration (CKD-EPI) equation refit without adjustment for race. BUN/Creatinine Ratio 9.3 LAB CHEMISTRY METHOD 05/26/2025 9:01 AM [facility] Calcium 8.8 8.5 - 10.5 mg/dL LAB CHEMISTRY METHOD 05/26/2025 9:01 AM [facility] AST (SGOT) 12 10 - 42 unit/L LAB CHEMISTRY METHOD 05/26/2025 9:01 AM [facility] ALT (SGPT) 21 10 - 60 unit/L LAB CHEMISTRY METHOD 05/26/2025 9:01 AM [facility] Alkaline Phosphatase 77 42 - 121 unit/L LAB CHEMISTRY METHOD 05/26/2025 9:01 AM [facility] Total Protein 6.6 6.0 - 8.0 g/dL LAB CHEMISTRY METHOD 05/26/2025 9:01 AM [facility] Albumin 3.5 3.2 - 5.0 g/dL LAB CHEMISTRY METHOD 05/26/2025 9:01 AM [facility] Total Bilirubin 0.3 0.0 - 1.4 mg/dL LAB CHEMISTRY METHOD 05/26/2025 9:01 AM EDT [facility] Blood Venous blood specimen / Unknown 05/26/2025 7:02 AM EDT 05/26/2025 7:31 AM EDT us Acosta Montelongo MD LAB BLOOD ORDERABLES Final Resul t [facility] [address] [place] [address], [place] [phone] documented in this encounter Visit Diagnoses Diagnosis Anoxic brain damage, not elsewhere classified (CMS/HCC V24, CMS/HCC V28) Hypothyroidism, unspecified Pure hypercholesterolemia, unspecified Type 1 diabetes mellitus without complications (CMS/HCC V24, CMS/HCC V28) documented in this encounter Care Teams Heat Treatment Technician Relationship Specialty Start Date End Date Acosta Montelongo MD [address] [place] [address] Dr [address] [place], [place] PCP - General Internal Medicine 10/26/24 documented as of this encounter
--- OUTSIDE RECORDS SUMMARY | 2025-09-01 12:48 | XMS_ITS | Encounter Summary ---
Author Organization [facility] Address [address] [place] [address] Care Team Providers Care Regulatory Affairs Manager Name Role Phone Acosta Montelongo MD Primary Care Provider [phone] Encounter Details Date Type Department Care Team (Late st Contact Info) Description 07/27/2024 Lab Requisition [facility] - Main Lab [address] [place] [address] Acosta Montelongo MD [address] [place] [address] Dr [address] [place], [place] Anoxic brain damage, not elsewhere classified [...] Date/Time Associated Diagnosis Comments HEMOGLOBIN A1C Routine 07/27/2024 6:26 AM EST Anoxic brain damage, not elsewhere classified (CMS/HCC) AMMONIA Routine 07/27/2024 6:26 AM EST Anoxic brain damage, not elsewhere classified (CMS/HCC) COMPREHENSIVE METABOLIC PANEL Routine 07/27/2024 6:26 AM EST Anoxic brain damage, not elsewhere classified (CMS/HCC) documented in this encounter Results * (ABNORMAL) Ammonia (07/27/2024 6:26 AM EST) Ammonia 46(H) 11 - 35 mcmol/L LAB CHEMISTRY METHOD 07/27/2024 7:36 AM EST [facility] Blood Venous blood specimen / Unknown 07/27/2024 6:26 AM EST 07/27/2024 7:03 AM EST us Acosta Montelongo MD LAB BLOOD ORDERABLES Final Resul t Performing Organization Address City/[facility]/ZIP Co de Phone Number [facility] [address] [place] [address], [place] [phone] * Hemoglobin A1c (07/27/2024 6:26 AM EST) Pathologist [facility] Hemoglobin A1C 9.4 % 07/27/2024 12:54 PM EST [facility] Mean Bld Glu Estim. 223 mg/dL 07/27/2024 12:54 PM [facility] Blood Venous blood specimen / Unknown 07/27/2024 6:26 AM EST 07/27/2024 7:03 AM EST us Acosta Montelongo MD LAB BLOOD ORDERABLES Final Resul t Performing Organization Address [facility]/ZIP Co de Phone Number [facility] [address] [place] [address], [place] [phone] * (ABNORMAL) Comprehensive metabolic panel (07/27/2024 6:26 AM EST) [facility] Sodium 143 133 - 145 mmol/L LAB CHEMISTRY METHOD 07/27/2024 7:41 AM [facility] Potassium 4.1 3.5 - 5.5 mmol/L LAB CHEMISTRY METHOD 07/27/2024 7:41 AM [facility] Chloride 114(H) 96 - 110 mmol/L LAB CHEMISTRY METHOD 07/27/2024 7:41 AM [facility] CO2 21 21 - 32 mmol/L LAB CHEMISTRY METHOD 07/27/2024 7:41 AM [facility] Anion Gap 8 3 - 11 LAB CHEMISTRY METHOD 07/27/2024 7:41 AM [facility] Glucose 60(L) 70 - 100 mg/dL LAB CHEMISTRY METHOD 07/27/2024 7:41 AM [facility] BUN 12 5 - 25 mg/dL LAB CHEMISTRY METHOD 07/27/2024 7:41 AM [facility] Creatinine 0.94 0.50 - 1.10 mg/dL LAB CHEMISTRY METHOD 07/27/2024 7:41 AM [facility] eGFR 80 >=60 mL/min/1. 73m2 LAB CHEMISTRY METHOD 07/27/2024 7:41 AM [facility] Comment:Calculation based on the Chronic Kidney Disease Epidemiology Collaboration (CKD-EPI) equation refit without adjustment for race. BUN/Creatinine Ratio 12.8 LAB CHEMISTRY METHOD 07/27/2024 7:41 AM [facility] Calcium 9.5 8.5 - 10.5 mg/dL LAB CHEMISTRY METHOD 07/27/2024 7:41 AM [facility] AST (SGOT) 18 10 - 42 unit/L LAB CHEMISTRY METHOD 07/27/2024 7:41 AM [facility] ALT (SGPT) 22 10 - 60 unit/L LAB CHEMISTRY METHOD 07/27/2024 7:41 AM [facility] Alkaline Phosphatase 89 42 - 121 unit/L LAB CHEMISTRY METHOD 07/27/2024 7:41 AM [facility] Total Protein 7.1 6.0 - 8.0 g/dL LAB CHEMISTRY METHOD 07/27/2024 7:41 AM [facility] Albumin 3.7 3.2 - 5.0 g/dL LAB CHEMISTRY METHOD 07/27/2024 7:41 AM [facility] Total Bilirubin 0.3 0.0 - 1.4 mg/dL LAB CHEMISTRY METHOD 07/27/2024 7:41 AM [facility] Blood Venous blood specimen / Unknown 07/27/2024 6:26 AM EST 07/27/2024 7:03 AM EST us Acosta Montelongo MD LAB BLOOD ORDERABLES Final Resul t [facility] [address] [place] [address], documented in this encounter Visit Diagnoses Diagnosis Anoxic brain damage, not elsewhere classified (CMS/HCC V24, CMS/HCC V28) documented in this encounter Care Teams Regulatory Affairs Manager Relationship Specialty Start Date End Date Acosta Montelongo MD [address] [place] [address] Dr [address] [place], [place] PCP - General Internal Medicine 10/26/24 documented as of this encounter
== END 2025-09-01 10:52 | disposition home or self-care (01) ==
LOC: HO.HSM 10:23
PROVIDERS: PCP Hospitalist; Referring Provider Hospitalist; Visit Provider Registered Nurse
DX: G40.909 Epilepsy, unspecified, not intractable, without status epilepticus (principal); S06.9XAS Unspecified intracranial injury with loss of consciousness status unknown, sequela
CPT/HCPCS: 99214

== ENCOUNTER → 2025-09-01 10:22 | Outpatient (BNVA) | payer MEDICARE, MEDICAID, SELFPAY | PROVIDERS: PCP Hospitalist; Referring Provider Hospitalist; Visit Provider Registered Nurse | DX: G40.909 Epilepsy, unspecified, not intractable, without status epilepticus (principal); S06.9XAS Unspecified intracranial injury with loss of consciousness status unknown, sequela | CPT/HCPCS: 99212 ==